=== PATIENT | male | born 1950 | race Caucasian/White ===

== ENCOUNTER 2017-04-28 16:21 | Emergency (ER) | payer MEDICARE, BC ==
[2017-04-28] MEDS ORDERED: KETOROLAC TROMETHAMINE 60 MG/2 ML VIAL IM ONE ×2 (16:52→16:57)
[2017-04-28] MEDS ORDERED: ORPHENADRINE CITRATE 30 MG/ML VIAL IM ONE (16:52)
[2017-04-28] MEDS ORDERED: ORPHENADRINE CITRATE 30 MG/ML VIAL ONE (16:57)
--- NOTE | 2017-04-28 16:58 | ERNOTE ---
Back Pain ER HPI Date of Service: 04/28/17 Presenting Symptoms: hx chronic back pain Time Seen by Provider: 04/28/17 16:43 Source: patient Exam Limitations: no limitations Immunizations: Pt. comes in with c/o R lower back pain for three days Allergies/Adverse Reactions: Allergies No Known Allergies Allergy (Verified 04/28/17 16:36) Home Medications: HOME MEDICATIONS Atorvastatin Calcium [Lipitor] 40 mg PO DAILY 03/18/14 [Last Taken 07/20/14 14: 00 1 tab] Benazepril HCl [Lotensin] 20 mg PO DAILY 03/18/14 [Last Taken 07/20/14 1 tab] Furosemide [Lasix] 80 mg PO BID 03/18/14 [Last Taken 07/20/14 1 tab] Insulin NPH Human Recom [Novolin N] 25 unit SQ HS 03/18/14 [Last Taken 07/19/14] Multivitamin [Multi-Vitamin Daily] 1 each PO DAILY 03/18/14 [Last Taken 14:00 1 tab] Nitroglycerin [Nitrostat] 0.4 mg SL PRN PRN 03/18/14 [Last Taken 07/20/14 19:15 1 tab] Warfarin Sodium [Coumadin] 5 mg PO DAILY 03/18/14 [Last Taken 07/18/14 1 tab] metFORMIN HCL [Glucophage] 750 mg PO BID 03/18/14 [Last Taken 07/20/14 14:00 1 tab] Cholecalciferol [Vitamin D] 2,000 unit PO DAILY 07/21/14 [Last Taken Unknown] Amiodarone HCl [Cordarone] 200 mg PO DAILY 02/06/15 [Last Taken Unknown] Levothyroxine Sodium [Synthroid] 225 mcg PO DAILY 02/06/15 [Last Taken Unknown] Potassium Chloride [Klor-Con M20] 20 meq PO BID 02/06/15 [Last Taken Unknown] Cyclobenzaprine HCl [Flexeril] 10 mg PO TID PRN #90 tab 04/28/17 [Last Taken Unknown] Fenofibrate 160 mg PO DAILY 04/28/17 [Last Taken Unknown] Metolazone 2.5 mg PO 04/28/17 [Last Taken Unknown] Tramadol HCl [Rybix Odt] 50 - 100 mg PO PRN PRN 04/28/17 [Last Taken Unknown] glipiZIDE [Glucotrol Xl] 5 mg PO DAILY 04/28/17 [Last Taken Unknown] Narrative: Pt. comes in with c/o R lower back pain that started this morning and has worsened throughout the day to where he was not able to stand without help. Pt. states that pain radiates down R leg. Pt. denies any SOB, CP, NVD, fever, alleviating factors despite taking tramadol for the pain. Review of Systems - Review of Systems Constitutional: Present: no symptoms reported. Absent: recent illness, fever, chills, weakness, fatigue, malaise EYE: Present: no symptoms reported ENT: Present: no symptoms reported Respiratory: Present: no symptoms reported. Absent: shortness of breath, cough , wheezing Cardiology: Present: no symptoms reported. Absent: chest pain, palpitations, edema Gastrointestinal/Abdominal: Present: no symptoms reported. Absent: nausea, vomiting, diarrhea Genitourinary: Present: no symptoms reported. Absent: frequency, decreased urinary output Musculoskeletal: Present: back pain - R lower back pain Skin: Present: no symptoms reported. Absent: rash, change in color Neurological: Present: no symptoms reported. Absent: headache, dizziness/light- headedness, numbness, tingling All Other Systems: All systems neg except as marked - Patient's Past Medical History Patient History - Medical: Arthritis, Chronic Pain, Diabetes Type 2, Hypothyroidism, Obesity Patient History - Cardiac/Respiratory: Angina, Atrial Fibrillation, Coronary Heart Disease, COPD, Hypertension, Hyperlipidemia Patient History - Cancer: No Hx of Cancer Patient History - Surgical Procedures: Cholecystectomy, T & A, Other Patient History - Other: None - Social History Living Situations: alone Abuse History: No History of abuse Psych History: Hx of Depression Smoking Status: Current every day smoker Have you smoked in the past 12 months: Yes Alcohol Use: rarely Drug Use: none Physical Exam - Physical Exam General Appearance: Present: wd/wn, alert, no apparent distress Head Exam: Present: normal inspection, no evidence of injury Eye Exam: Normal inspection: bilateral, PERRL: bilateral, EOMI: bilateral Ears, Nose, Throat: Present: normal ENT inspection, normal pharynx Neck: Present: normal inspection, nontender. Absent: lymphadenopathy (R), lymphadenopathy (L) Respiratory: Present: no respiratory distress, normal breath sounds, no accessory muscle use, chest nontender, lungs clear Cardiovascular/Chest: Present: regular rate, rhythm, no murmur, normal peripheral pulses Gastrointestinal/Abdominal: Present: normal bowel sounds, nontender, nondistended, soft Back Exam: Present: vertebral tenderness - L2-3, muscle spasm - R paraspinous and R gluteus Extremity Exam: Present: normal inspection, non-tender, normal range of motion, no edema Neurological Exam: Present: alert, oriented, normal mood/affect, no motor/ sensory deficits Skin Exam: Present: normal color, warm/dry. Absent: pallor, skin rash ED Progress - Date and Time Seen: Date and Time: 04/28/17 18:11 As pt. does not have any new injury and has history of the same symptoms feel that xray is not needed at this time. - Vital Signs Patient's Vital Signs:: I have reviewed the patient's vital signs. Vital Signs: Vital Signs 04/28/17 16:30 Temperature 36.8 C Pulse Rate 60 Respiratory 14 Rate Blood Pressure 119/75 O2 Sat by Pulse 94 Oximetry - Progress/Reassessment Chief Complaint: Back Pain Progress:: Pain free at discharge Departure Clinical Impression: Sciatica Qualifiers: Laterality: right Qualified Code(s): M54.31 - Sciatica, right side - Departure Disposition: Home self-care Condition: Good Instructions: Sciatica, [id number] Additional Instructions: Please follow up with your primary provider in 2-3 days Referrals: Anson Berry MD [Primary Care Provider] - Prescriptions: Cyclobenzaprine HCl [Flexeril] 10 mg PO TID PRN #90 tab PRN Reason: MUSCLE SPASMS
[2017-04-28 18:23] VITALS: BP 121/76
== END 2017-04-28 18:10 | disposition home or self-care (01) ==
LOC: ER 16:21
DX: M54.31 Sciatica, right side (principal); F17.200 Nicotine dependence, unspecified, uncomplicated; I48.91 Unspecified atrial fibrillation; Z79.01 Long term (current) use of anticoagulants; E11.9 Type 2 diabetes mellitus without complications; Z79.4 Long term (current) use of insulin; E03.9 Hypothyroidism, unspecified; I10 Essential (primary) hypertension; E78.5 Hyperlipidemia, unspecified; G89.29 Other chronic pain; M19.90 Unspecified osteoarthritis, unspecified site

== ENCOUNTER 2018-08-05 13:33 | Inpatient (IN) | payer BC, MEDICARE ==
--- NOTE | 2018-08-05 13:54 | ERNOTE ---
Integumentary HPI - Narrative Date of Service: 08/05/18 - General Time Seen by Provider: 08/05/18 13:51 Source: patient Exam Limitations: no limitations - Immun/Allergies/Home Medications Immunizations: IMMUNIZATION HX Immunizations Up to Date Yes History of Influenza Vaccine Yes Hx Pneumococcal Vaccination Yes Allergies/Adverse Reactions: Allergies Allergy/AdvReac Type Severity Reaction Status Date / Time No Known Allergies Allergy Verified 08/05/18 13:45 Home Medications: HOME MEDICATIONS Multivitamin [Multi-Vitamin Daily] 1 ea PO DAILY@14303/18/14 [Last Taken 07/20/14 14:00 1 tab] Cholecalciferol [Vitamin D] 2,000 unit PO DAILY@142907/21/14 [Last Taken Unknown] flaxseed oil 1,000 mg capsule 1,000 mg PO DAILY@142902/20/18 [Last Taken Unknown] metolazone 2.5 mg tablet 2.5 mg PO .COMPLEX #30 tab 04/02/18 [Last Taken Unknown] insulin NPH isophane U- 100 human 100 unit/mL subcutaneous suspension See Rx Instructions SUB-Q BID #0.1 ml 04/09/18 [Last Taken Unknown] atorvastatin 40 mg tablet 40 mg PO DAILY@02304/13/18 [Last Taken Unknown] cyclobenzaprine 10 mg tablet 10 mg PO TID #60 tab 05/27/18 [Last Taken Unknown] nitroglycerin 0.4 mg sublingual tablet 0.4 mg SL PRN PRN #25 tab 06/10/18 [Last Taken Unknown] warfarin 5 mg tablet 5 mg PO .COMPLEX #30 tab 07/28/18 [Last Taken Unknown] Albuterol Sulfate [Proair Hfa] 2 puff IH Q4H PRN #1 inhaler 08/03/18 [Last Taken Unknown] Amiodarone HCl [Cordarone] 200 mg PO DAILY@14308/05/18 [Last Taken Unknown] Benazepril HCl [Lotensin] 20 mg PO DAILY@142908/05/18 [Last Taken Unknown] Blood Sugar Diagnostic [Precision Xtra Test] 0 ea .ROUTE .MEDSUPPLY 08/05/18 [Last Taken Unknown] Fenofibrate 160 mg PO DAILY@14308/05/18 [Last Taken 08/05/18] Furosemide [Lasix] 80 mg PO 142908/05/18 [Last Taken 08/05/18] Levothyroxine Sodium [Synthroid] 25 mcg PO DAILY@142908/05/18 [Last Taken Unknown] Levothyroxine Sodium [Synthroid] 200 mcg PO DAILY@142908/05/18 [Last Taken Unknown] Potassium Chloride [Klor-Con M20] 20 meq PO 229,142908/05/18 [Last Taken Unknown] Sulfamethoxazole/Trimethoprim [Bactrim Ds] 160 mg PO DAILY@142908/05/18 [Last Taken Unknown] glipiZIDE [Glipizide] 5 mg PO DAILY@142908/05/18 [Last Taken Unknown] metFORMIN HCL [Metformin HCl] 1,000 mg PO 08/05/18 [Last Taken Unknown] - Pain Pain Score: 9 - History of Present Illness Narrative: The patient is a 68 year old male who presents for worsening bilateral lower extremity cellulitis which has been present for 2 days. There are associated symptoms of fatigue, chills and rash. The patient reports pain to bilateral lower extremities, 9/10. There are no alleviating factors. There are aggravating factors of activity. Previous treatments have included: currently taking Bactrim DS without improvement. The past medical history includes: arthritis, AFib, COPD, CAD, DVT, DM, peripheral neuropathy, HLD, HTN, hypothyroid and Vit D deficiency. The social history is positive for current tobacco use. The patient has had no ill contacts. Review of Systems - Review of Systems Constitutional: Present: chills, fatigue, malaise. Absent: fever EYE: Present: no symptoms reported ENT: Present: no symptoms reported. Absent: ear pain, nasal drainage, sore throat Respiratory: Present: shortness of breath, cough Cardiology: Present: edema. Absent: chest pain Gastrointestinal/Abdominal: Present: nausea. Absent: vomiting, diarrhea, abdominal pain Genitourinary: Present: no symptoms reported. Absent: dysuria Musculoskeletal: Present: no symptoms reported Skin: Present: rash, change in color Neurological: Present: weakness Endocrine: Present: no symptoms reported Hematologic/Lymphatic: Present: no symptoms reported Psych: Present: no symptoms reported All Other Systems: All systems neg except as marked Medical History (Last Reviewed 08/05/18 @ 21:52 by FELIPA Thompson) Diabetic foot infection (Acute) Porphyria (Chronic) CAD (coronary artery disease) (Chronic) Eczema (Chronic) Testicular/scrotal pain (Acute) Scrotum swelling (Chronic) Testicular/scrotal pain (Chronic) This is a chronically reoccurring event Scrotum swelling (Acute) Diabetes mellitus (Chronic) BS running in the 140-150s usually but has had lows down to as low as 28 at night while sleeping. Back pain Dysphagia Edema Insomnia Low back pain Onset Date: ~10/04/15 Onychomycosis Onset Date: ~10/04/15 Arthritis Onset Date: Unknown Atrial fibrillation w/ RVR Bilateral knee pain Onset Date: ~10/04/15 COPD (chronic obstructive pulmonary disease) Onset Date: ~10/04/15 Coronary artery disease Onset Date: ~10/04/15 DVT (deep venous thrombosis) Onset Date: Unknown Diabetes mellitus Onset Date: ~10/04/15 Diabetic peripheral neuropathy Onset Date: ~10/04/15 Hearing loss Hyperlipidemia due to dietary fat intake Hypertension Onset Date: ~10/04/15 Hypothyroidism Paroxysmal atrial fibrillation Unstable angina with LAD stent 2000; with 3.0 promus drug eluting stent to the LAD 09/18/2010 Venous (peripheral) insufficiency Onset Date: ~10/04/15 Vitamin D deficiency Onset Date: ~02/04/13 Surgical History: Surgical History (Last Reviewed 08/05/18 @ 21:52 by FELIPA Thompson) History of carpal tunnel release Onset Date: ~1998 Bilateral History of esophagogastroduodenoscopy (EGD) Onset Date: ~03/23/14 ; clotest Negative. Pharyngeal mass Hx of adenoidectomy Onset Date: Unknown Hx of angioplasty (3) OP 1 & 2 Hx of arthroscopic knee surgery Onset Date: ~02/08/15 Right; Hx of cardiac catheterization Onset Date: ~09/18/12 Hx of cholecystectomy Onset Date: ~1996 [facility] Hx of colonoscopy Onset Date: Unknown Hx of toe surgery Onset Date: ~1986 Toe Nail removal & scraping Hx of tonsillectomy Onset Date: ~1975 Hx of vascular surgery Onset Date: ~2013 Vascular Occlusion, Right Stented coronary artery 06/2001, 09/2010- 2 stents Family History: Family History (Last Reviewed 08/05/18 @ 21:52 by FELIPA Thompson) Brother , @ age 48 Myocardial infarction Father , @ age 59 Heart disease COPD (chronic obstructive pulmonary disease) Mother CVA (cerebral vascular accident) Myocardial infarction x3 @ age 62 Heart disease Colon cancer Social History: Preferred Language Swedish Do you have any buddhism or No cultural preference? Smoking Status Current every day smoker Abuse History No History of abuse Psych History Hx of Depression (Last Updated 07/24/18 @ 16:44 by Juventino Griggs DO) No Social History Section defined Physical Exam - Physical Exam General Appearance: Present: wd/wn, alert, moderate distress Head Exam: Present: normal inspection Respiratory: Present: no respiratory distress, no accessory muscle use, wheezing - inspiratory and expiratory wheezing to right, expiratory wheezing to left bases Cardiovascular/Chest: Present: no murmur, irregularly irregular Extremity Exam: Present: decreased range of motion, pedal edema - 3-4+ bilateral lower extremity pitting edema, fine papular lesions covering upper portion of erythema, extremity edema, other - circumferential erythema with papular lesions to bilateral lower extremities from upper to mid calf to ankles and dorsal feet Neurological Exam: Present: alert, oriented, normal mood/affect Skin Exam: Present: warm/dry, skin rash - fine papular lesions to lower abdomen left anterior and lateral chest and left upper arm presumed secondary drug reaction Progress - Date and Time Seen: Date and Time: 08/05/18 Discussed case with and will admit patient for cellulitis with failed outpatient treatment. Discussed with patient also having wheezing and symptoms related to COPD. Patient Crea elevated from levels obtained 2 days ago. Patient will be started on Clindamycin IV. - Results and Orders Patient's Lab Results:: I have reviewed the patient's lab results. - Vital Signs Patient's Vital Signs:: I have reviewed the patient's vital signs. Vital Signs: Vital Signs 08/05/18 13:41 Temperature 36.7 C Pulse Rate 61 Respiratory Rate 20 Blood Pressure 143/79 O2 Sat by Pulse Oximetry 91 L - Progress/Reassessment Chief Complaint: Cellulitis Departure Clinical Impression: Failure of outpatient treatment, COPD (chronic obstructive pulmonary disease) with acute bronchitis, Acute renal insufficiency Cellulitis Qualifiers: Site of cellulitis: extremity Site of cellulitis of extremity: lower extremity Laterality: unspecified laterality Qualified Code(s): L03.119 - Cellulitis of unspecified part of limb - Departure Disposition: Still a patient Condition: Fair
[2018-08-05] MEDS ORDERED: ALBUTEROL SULFATE/IPRATROPIUM 3 ML NEBU IH ONE (14:02)
[2018-08-05] MEDS ORDERED: MORPHINE SULFATE 2 MG/ML DISP.SYRIN IV ONE (14:19)
[2018-08-05] MEDS ORDERED: MORPHINE SULFATE 2 MG/ML DISP.SYRIN ONE (14:19)
[2018-08-05 14:27] LABS: Hematocrit 47.9 % (42.0-52.0); Hemoglobin 15.7 gm/dL (13.5-18.0); Mean Cell Volume 92.6 fl (78-100); Mean Corpuscular Hemoglobin 30.4 pg (27-31); Mean Corpuscular Hgb Conc 32.8 g/dl (32-36); Neutrophil # 9.4 K/mm3 (1.3-6.0); Neutrophil % 83.5 % (42-75.0); Platelet Count 255 K/mm3 (150-450); Red Blood Count 5.17 M/mm3 (4.7-6.0); Red Cell Distribution Width 16.7 % (11.5-14.0); White Blood Count 11.3 K/mm3 (4.0-10.5)
[2018-08-05 14:47] LABS: Albumin * 2.9 gm/dl (3.4-5.0); Anion Gap 13.1 mmol/L (6.8-13.8); BUN/Creatinine Ratio 15.6 (9.0-21.6); Bilirubin, Total 0.8 mg/dL (0.0-1.1); CRP 11.7 mg/dL (0.0-0.9); Ca. Corrected For Albumin 9.7 mg/dL (8.4-10.2); Calcium * 9.1 mg/dL (7.9-10.9); Potassium 4.1 mmol/L (3.4-4.6)
[2018-08-05] MEDS ORDERED: MORPHINE SULFATE 4 MG/ML SYRG IV ONE (14:52)
[2018-08-05] MEDS ORDERED: CLINDAMYCIN PHOSPHATE 600 MG in DEXTROSE 5 % IN WATER 100 ML IV ONE ×2 (15:33)
[2018-08-05] MEDS ORDERED: NITROGLYCERIN 0.4 MG/TAB BTL SL PRN (18:21)
[2018-08-05] MEDS ORDERED: ALBUTEROL SULFATE 200 PUFF INHALER IH PRN (18:21)
[2018-08-05] MEDS ORDERED: ACETAMINOPHEN 500 MG TABLET PO PRN (18:37)
[2018-08-05] MEDS ORDERED: ONDANSETRON HCL 8 MG TABLET PO PRN (18:39)
--- NOTE | 2018-08-05 19:19 | HP ---
Chief Complaint - Chief Complaint Date of Service: 08/05/18 Time of Service: 17:40 Chief Complaint: Pain and redness in both LEs. History of Present Illness: Bar Rodriguez is a 68-year-old male well known to me who presents with severe cellulitis in both legs. He had had some cellulitis 2 days ago and presented to the ER and he was started on oral Bactrim. He has since started erupting a morbilliform rash over the abdomen and arms. Further the legs have become much more red and hot to touch and much more painful than it was 2 days ago. It is very painful with a stinging type feeling when he stands up. He is able to walk but it hurts a lot to do so. I'll start him on IV clindamycin 300 mg 4 times a day. He did get 600 mg loading dose in the emergency room. He'll keep his legs elevated. Blood cultures were drawn in the emergency room but will not be available for couple days. I'll start him on a consistent carb diet and his usual twice a day short- acting mealtime insulin as he usually at least 2 meals a day. Medical History (Last Reviewed 08/05/18 @ 16:28 by Cecilia Lofton RN) Diabetic foot infection (Acute) Porphyria (Chronic) CAD (coronary artery disease) (Chronic) Eczema (Chronic) Testicular/scrotal pain (Acute) Scrotum swelling (Chronic) Testicular/scrotal pain (Chronic) This is a chronically reoccurring event Scrotum swelling (Acute) Diabetes mellitus (Chronic) BS running in the 140-150s usually but has had lows down to as low as 28 at night while sleeping. Back pain Dysphagia Edema Insomnia Low back pain Onset Date: ~10/04/15 Onychomycosis Onset Date: ~10/04/15 Arthritis Onset Date: Unknown Atrial fibrillation w/ RVR Bilateral knee pain Onset Date: ~10/04/15 COPD (chronic obstructive pulmonary disease) Onset Date: ~10/04/15 Coronary artery disease Onset Date: ~10/04/15 DVT (deep venous thrombosis) Onset Date: Unknown Diabetes mellitus Onset Date: ~10/04/15 Diabetic peripheral neuropathy Onset Date: ~10/04/15 Hearing loss Hyperlipidemia due to dietary fat intake Hypertension Onset Date: ~10/04/15 Hypothyroidism Paroxysmal atrial fibrillation Unstable angina with LAD stent 2000; with 3.0 promus drug eluting stent to the LAD 09/18/2010 Venous (peripheral) insufficiency Onset Date: ~10/04/15 Vitamin D deficiency Onset Date: ~02/04/13 Surgical History: Surgical History (Last Reviewed 08/05/18 @ 16:28 by Cecilia Lofton RN) History of carpal tunnel release Onset Date: ~1998 Bilateral History of esophagogastroduodenoscopy (EGD) Onset Date: ~03/23/14 ; clotest Negative. Pharyngeal mass Hx of adenoidectomy Onset Date: Unknown Hx of angioplasty (3) OP 1 & 2 Hx of arthroscopic knee surgery Onset Date: ~02/08/15 Right; Hx of cardiac catheterization Onset Date: ~09/18/12 Hx of cholecystectomy Onset Date: ~1996 [facility] Hx of colonoscopy Onset Date: Unknown Hx of toe surgery Onset Date: ~1986 Toe Nail removal & scraping Hx of tonsillectomy Onset Date: ~1975 Hx of vascular surgery Onset Date: ~2013 Vascular Occlusion, Right Stented coronary artery 06/2001, 09/2010- 2 stents Family History: Family History (Last Reviewed 08/05/18 @ 16:28 by Cecilia Lofton RN) Brother , @ age 48 Myocardial infarction Father , @ age 59 Heart disease COPD (chronic obstructive pulmonary disease) Mother CVA (cerebral vascular accident) Myocardial infarction x3 @ age 62 Heart disease Colon cancer Social History: Patient Lives/Resources Home Utilized Preferred Language Nepali Do you have any cheondoism or No cultural preference? Smoking Status Current every day smoker Have you smoked in the past 12 Yes months Do you dip or chew tobacco No Abuse History No History of abuse Psych History Hx of Depression (Last Updated 07/24/18 @ 16:44 by Juventino Griggs DO) No Social History Section defined Review Of Systems (GEN) - Review of Systems Generalized/Overall Review: Present: Malaise EENTM: Present: No Symptoms Reported Respiratory: Present: No Symptoms Reported Cardiac: Present: No Symptoms Reported, Palpitations Abdominal: Present: No Symptoms Reported Genitourinary: Present: No Symptoms Reported Musculoskeletal: Present: No Symptoms Reported Neurological: Present: No Symptoms Reported Skin: Present: Rash - The trunk and arms., Change in Color - Of both lower extremities below the knees. Legs are dark red with dark purple areas within them. There are no open sores and there is no drainage to culture. Endocrine: Present: No Symptoms Reported Misc: All systems neg except as marked Immunizations: IMMUNIZATION HX Immunizations Up to Date Yes History of Influenza Vaccine Yes Hx Pneumococcal Vaccination Yes Allergies/Adverse Reactions: Allergies Allergy/AdvReac Type Severity Reaction Status Date / Time No Known Allergies Allergy Verified 08/05/18 13:45 Home Medications: HOME MEDICATIONS Multivitamin [Multi-Vitamin Daily] 1 ea PO DAILY@14303/18/14 [Last Taken 07/20/14 14:00 1 tab] Cholecalciferol [Vitamin D] 2,000 unit PO DAILY@14307/21/14 [Last Taken Unknown] flaxseed oil 1,000 mg capsule 1,000 mg PO DAILY@142902/20/18 [Last Taken Unknown] metolazone 2.5 mg tablet 2.5 mg PO .COMPLEX #30 tab 04/02/18 [Last Taken Unknown] insulin NPH isophane U- 100 human 100 unit/mL subcutaneous suspension See Rx In structions SUB-Q BID #0.1 ml 04/09/18 [Last Taken Unknown] atorvastatin 40 mg tablet 40 mg PO DAILY@02304/13/18 [Last Taken Unknown] cyclobenzaprine 10 mg tablet 10 mg PO TID #60 tab 05/27/18 [Last Taken Unknown] nitroglycerin 0.4 mg sublingual tablet 0.4 mg SL PRN PRN #25 tab 06/10/18 [Last Taken Unknown] warfarin 5 mg tablet 5 mg PO .COMPLEX #30 tab 07/28/18 [Last Taken Unknown] Albuterol Sulfate [Proair Hfa] 2 puff IH Q4H PRN #1 inhaler 08/03/18 [Last Taken Unknown] Amiodarone HCl [Cordarone] 200 mg PO DAILY@14308/05/18 [Last Taken Unknown] Benazepril HCl [Lotensin] 20 mg PO DAILY@142908/05/18 [Last Taken Unknown] Blood Sugar Diagnostic [Precision Xtra Test] 0 ea .ROUTE .MEDSUPPLY 08/05/18 [Last Taken Unknown] Fenofibrate 160 mg PO DAILY@142908/05/18 [Last Taken 08/05/18] Furosemide [Lasix] 80 mg PO 08/05/18 [Last Taken 08/05/18] Levothyroxine Sodium [Synthroid] 25 mcg PO DAILY@1430 08/05/18 [Last Taken Unknown] Levothyroxine Sodium [Synthroid] 200 mcg PO DAILY@1430 08/05/18 [Last Taken Unknown] Potassium Chloride [Klor-Con M20] 20 meq PO 0230,1430 08/05/18 [Last Taken Unknown] Sulfamethoxazole/Trimethoprim [Bactrim Ds] 160 mg PO DAILY@1430 08/05/18 [Last Taken Unknown] glipiZIDE [Glipizide] 5 mg PO DAILY@1430 08/05/18 [Last Taken Unknown] metFORMIN HCL [Metformin HCl] 1,000 mg PO 0230,1430 08/05/18 [Last Taken Unknown] Exam - Exam Vital Signs: Vital Signs - Last Taken Temp 36.4 C 08/05/18 16:54 Pulse 60 08/05/18 16:54 Resp 18 08/05/18 16:54 BP 108/56 08/05/18 16:54 Pulse Ox 92 L 08/05/18 16:54 Constitutional: Present: Alert, Oriented x3, Cooperative, Well developed, Well nourished, Moderate distress ENT Exam: Present: normal ENT inspection, hearing grossly normal, pharynx normal, TMs normal Eye Exam: bilateral eye: normal inspection, PERRL, EOMI Neck: Present: non-tender, full range of motion, supple Back Exam: Present: normal inspection, no CVA tenderness, no vertebral tenderness Breasts: Present: Exam deferred, Nontender Respiratory: Present: chest non-tender, lungs clear, normal breath sounds, no respiratory distress, no accessory muscle use Cardiovascular/Chest: Present: extra beats, irregularly irregular Peripheral Pulses: carotid (R): 2+, carotid (L): 2+, radial (R): 2+, radial (L): 2+ Abdomen: Present: Normal bowel sounds, soft, nontender, nondistended, no rebound tenderness, no hepatospenomegaly, no masses, obese /Rectal: Present: Exam deferred Extremity: Present: inflammation, lower extremity edema Skin Exam: Present: skin rash - Pinkish morbilliform rash over the trunk and arms and is macular. Lymphatic: Present: no adenopathy Neurologic: Present: configuration consultant II-XII nml as tested Appearance: Present: appropriate appearance, appropriate insight, neat, no memory impairment Eye contact: Present: cooperative, good eye contact, normal speech, avoids eye contact Thoughts: Present: normal thought pattern, no apparent hallucination, auditory hallucinations Diagnostic Studies: Abnormal Lab Results 08/05/18 08/05/18 08/05/18 Range/Units 14:15 14:15 14:15 WBC 11.3 H (4.0-10.5) K/mm3 RDW 16.7 H (11.5-14.0) % Immature Gran % (Auto) 0.80 H (0.001-0.429) % Immature Gran # (Auto) 0.09 H (0.000-0.0310) K/mm3 Neutrophils % 83.5 H (42-75.0) % Lymphocytes % 6.7 L (20-51) % Neutrophils # 9.4 H (1.3-6.0) K/mm3 Lymphocytes # 0.76 L (1.5-3.5) k/mm3 Chloride 96 L (97-106) mmol/L BUN 36 H (6-23) mg/dL Creatinine 2.31 H D (0.4-1.4) mg/dL Est GFR (Non-Af Amer) 30 L D (60-130) mL/min Random Glucose 149 H (70-110) mg/dL C-Reactive Prot, Quant 11.7 H (0.0-0.9) mg/dL B-Natriuretic Peptide 1822 H (5-350) pg/mL Albumin 2.9 L (3.4-5.0) gm/dl Laboratory Results WBC 11.3 K/mm3 (4.0-10.5) H 08/05/18 14:15 RBC 5.17 M/mm3 (4.7-6.0) 08/05/18 14:15 Hgb 15.7 gm/dL (13.5-18.0) 08/05/18 14:15 Hct 47.9 % (42.0-52.0) 08/05/18 14:15 MCV 92.6 fl (78-100) 08/05/18 14:15 MCH 30.4 pg (27-31) 08/05/18 14:15 MCHC 32.8 g/dl (32-36) 08/05/18 14:15 RDW 16.7 % (11.5-14.0) H 08/05/18 14:15 Plt Count 255 K/mm3 (150-450) 08/05/18 14:15 MPV 10.0 fl (8-11.3) 08/05/18 14:15 Immature Gran % (Auto) 0.80 % (0.001-0.429) H 08/05/18 14:15 Immature Gran # (Auto) 0.09 K/mm3 (0.000-0.0310) H 08/05/18 14:15 Neutrophils % 83.5 % (42-75.0) H 08/05/18 14:15 Lymphocytes % 6.7 % (20-51) L 08/05/18 14:15 Monocytes % 6.6 % (0.0-9) 08/05/18 14:15 Eosinophils % 2.0 % (0.0-3.0) 08/05/18 14:15 Basophils % 0.4 % (0.0-1.0) 08/05/18 14:15 Nucleated RBC % 0.0 k/mm3 (0-1) 08/05/18 14:15 Neutrophils # 9.4 K/mm3 (1.3-6.0) H 08/05/18 14:15 Lymphocytes # 0.76 k/mm3 (1.5-3.5) L 08/05/18 14:15 Monocytes # 0.7 k/mm3 (0.0-1.0) 08/05/18 14:15 Eosinophils # 0.2 k/mm3 (0.0-0.7) 08/05/18 14:15 Absolute Basophils 0.1 k/mm3 (0.0-0.1) 08/05/18 14:15 Sodium 136 mmol/L (132-142) 08/05/18 14:15 Plasma Sodium 137 mmol/L (130-142) 08/05/18 14:15 Potassium 4.1 mmol/L (3.4-4.6) 08/05/18 14:15 Chloride 96 mmol/L (97-106) L 08/05/18 14:15 Carbon Dioxide 31.0 mmol/L (24-32.6) 08/05/18 14:15 Anion Gap 13.1 mmol/L (6.8-13.8) 08/05/18 14:15 BUN 36 mg/dL (6-23) H 08/05/18 14:15 Creatinine 2.31 mg/dL (0.4-1.4) H D 08/05/18 14:15 Est GFR (Non-Af Amer) 30 mL/min (60-130) L D 08/05/18 14:15 BUN/Creatinine Ratio 15.6 (9.0-21.6) 08/05/18 14:15 Random Glucose 149 mg/dL (70-110) H 08/05/18 14:15 Lactic Acid, Venous 1.3 mmol/L (0.4-2.0) 08/05/18 14:15 Calcium 9.1 mg/dL (7.9-10.9) 08/05/18 14:15 Calcium Adj for Albumin 9.7 mg/dL (8.4-10.2) 08/05/18 14:15 Total Bilirubin 0.8 mg/dL (0.0-1.1) 08/05/18 14:15 AST 30 U/L (0-48) 08/05/18 14:15 ALT 23 U/L (19-67) 08/05/18 14:15 Alkaline Phosphatase 80 U/L (50-170) 08/05/18 14:15 C-Reactive Prot, Quant 11.7 mg/dL (0.0-0.9) H 08/05/18 14:15 B-Natriuretic Peptide 1822 pg/mL (5-350) H 08/05/18 14:15 Total Protein 8.0 gm/dL (6.2-8.2) 08/05/18 14:15 Albumin 2.9 gm/dl (3.4-5.0) L 08/05/18 14:15 Assessment/Plan - Narrative Narrative: 1. Start Cleocin 300 mg every 6 hours IV piggyback 2. Monitor and manage blood sugars 3. Progressive ambulation. 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
[2018-08-05] MEDS: CLINDAMYCIN PHOSPHATE 300 MG in DEXTROSE 5 % IN WATER 50 ML IV SCH ×2 (21:33)
[2018-08-06] MEDS ORDERED: ROSUVASTATIN CALCIUM 10 MG TABLET ONE (02:29)
[2018-08-06] MEDS ORDERED: FUROSEMIDE 80 MG TABLET PO SCH ×2 (02:30→09:00)
[2018-08-06] MEDS: WARFARIN SODIUM 5 MG TABLET PO SCH (02:31)
[2018-08-06] MEDS: ROSUVASTATIN CALCIUM 20 MG TABLET PO SCH (02:31)
[2018-08-06] MEDS: POTASSIUM CHLORIDE 20 MEQ TABLET.SA PO SCH ×2 (02:31→13:54)
[2018-08-06] MEDS: CLINDAMYCIN PHOSPHATE 300 MG in DEXTROSE 5 % IN WATER 50 ML IV SCH ×8 (03:03→21:09)
[2018-08-06 05:23] LABS: Hematocrit 43.7 % (42.0-52.0); Hemoglobin 13.9 gm/dL (13.5-18.0); Mean Cell Volume 93.8 fl (78-100); Mean Corpuscular Hemoglobin 29.8 pg (27-31); Mean Corpuscular Hgb Conc 31.8 g/dl (32-36); Neutrophil # 8.1 K/mm3 (1.3-6.0); Neutrophil % 81.5 % (42-75.0); Platelet Count 242 K/mm3 (150-450); Red Blood Count 4.66 M/mm3 (4.7-6.0); Red Cell Distribution Width 16.9 % (11.5-14.0); White Blood Count 9.9 K/mm3 (4.0-10.5)
[2018-08-06 05:27] LABS: Anion Gap 8.5 mmol/L (6.8-13.8); BUN/Creatinine Ratio 13.6 (9.0-21.6); Calcium * 8.2 mg/dL (7.9-10.9); Estimated Creat Clear 22.9; Potassium 4.5 mmol/L (3.4-4.6)
[2018-08-06] MEDS: INSULIN NPH HUMAN ISOPHANE 100 UNITS/ML VIAL SC SCH ×2 (07:11→17:13)
[2018-08-06 08:30] LABS: Prothrombin Time (Patient) 26.5 Seconds (9.0-11.0)
[2018-08-06 08:42] LABS: INR 2.62 INR (0.90-1.10)
[2018-08-06] MEDS: CYCLOBENZAPRINE HCL 10 MG TABLET PO SCH ×3 (09:21→17:13)
[2018-08-06] MEDS: NORMAL SALINE 1,000 ML IV PRN ×3 (10:19→17:16)
[2018-08-06] MEDS: ALBUTEROL SULFATE 2.5 MG/0.5 ML VIAL.NEB IH SCH ×3 (11:01→18:12)
--- NOTE | 2018-08-06 11:01 | PN ---
Subjective - Date and Time Seen Date: 08/06/18 Time: 09:15 Subjective Narrative: Mr. Rodriguez is worse this morning. He is weaker, hypersomnolent, weak voice, and light headed. His legs are hurting even without weightbearing. He is mildly to Rate of 24 and his lungs have bilateral expiratory and expiratory wheezes with scattered rhonchi. This morning lab is significantly worse. His admission BNP is 1800 but he appears clinically dry. His baseline creatinine is 1.3. He was 2.3 on admission yesterday and it is 3.33 today. His skin turgor is diminished, mucous membranes are dry, and he has some mild coordination in the lower extremity legs where his cellulitis is so prominent. At this time he is entirely too weak to be able to go home today in my opinion. With a significant worsening of his renal status and alteration in his mental status I believe he s hould be admitted to acute care. Objective - Review of Systems Generalized/Overall Review: Reports: Weakness, Malaise, Fatigue EENTM: Reports: No Symptoms Reported Respiratory: Reports: Cough, Shortness of Breath, Wheezing Cardiac: Reports: No Symptoms Reported Abdominal: Reports: No Symptoms Reported Genitourinary Symptoms: Reports: Oliguria Musculoskeletal Complaints: Reports: Other - Bilateral LE pain Neurological: Reports: Numbness, Weakness Skin: Reports: Rash - Thought to be from the trimethoprim sulfamethoxazole the rash appears to have faded some today., Other - The cellulitis on the lower extremities is a deeper red and violaceous color. It is still hot touch. It is very tender to touch. Extremely painful for him to stand and bear weight. Endocrine: Reports: No Symptoms Reported - Vitals Vitals: Last Vital Signs Temp 36.6 C 08/06/18 10:23 Pulse 58 L 08/06/18 10:23 Resp 24 08/06/18 10:23 BP 94/34 08/06/18 10:23 Pulse Ox 92 L 08/06/18 10:23 - Abnormal Lab Findings Abnormal Lab Findings: Abnormal Lab Results 08/05/18 08/05/18 08/05/18 Range/Units 14:15 14:15 14:15 WBC 11.3 H (4.0-10.5) K/mm3 RBC (4.7-6.0) M/mm3 MCHC (32-36) g/dl RDW 16.7 H (11.5-14.0) % Immature Gran % (Auto) 0.80 H (0.001-0.429) % Immature Gran # (Auto) 0.09 H (0.000-0.0310) K/mm3 Neutrophils % 83.5 H (42-75.0) % Lymphocytes % 6.7 L (20-51) % Neutrophils # 9.4 H (1.3-6.0) K/mm3 Lymphocytes # 0.76 L (1.5-3.5) k/mm3 ESR (0-10) mm/hr PT (9.0-11.0) Seconds INR (Anticoag Therapy) (0.90-1.10) INR Chloride 96 L (97-106) mmol/L Carbon Dioxide (24-32.6) mmol/L BUN 36 H (6-23) mg/dL Creatinine 2.31 H D (0.4-1.4) mg/dL Est GFR (Non-Af Amer) 30 L D (60-130) mL/min Random Glucose 149 H (70-110) mg/dL C-Reactive Prot, Quant 11.7 H (0.0-0.9) mg/dL B-Natriuretic Peptide 1822 H (5-350) pg/mL Albumin 2.9 L (3.4-5.0) gm/dl 18 18 18 Range/Units 05:00 05:10 05:10 WBC (4.0-10.5) K/mm3 RBC 4.66 L (4.7-6.0) M/mm3 MCHC 31.8 L (32-36) g/dl RDW 16.9 H (11.5-14.0) % Immature Gran % (Auto) (0.001-0.429) % Immature Gran # (Auto) 0.04 H (0.000-0.0310) K/mm3 Neutrophils % 81.5 H (42-75.0) % Lymphocytes % 6.7 L (20-51) % Neutrophils # 8.1 H (1.3-6.0) K/mm3 Lymphocytes # 0.66 L (1.5-3.5) k/mm3 ESR 63 H (0-10) mm/hr PT 26.5 H (9.0-11.0) Seconds INR (Anticoag Therapy) 2.62 H (0.90-1.10) INR Chloride (97-106) mmol/L Carbon Dioxide (24-32.6) mmol/L BUN (6-23) mg/dL Creatinine (0.4-1.4) mg/dL Est GFR (Non-Af Amer) (60-130) mL/min Random Glucose (70-110) mg/dL C-Reactive Prot, Quant (0.0-0.9) mg/dL B-Natriuretic Peptide (5-350) pg/mL Albumin (3.4-5.0) gm/dl 08/06/18 Range/Units 05:10 WBC (4.0-10.5) K/mm3 RBC (4.7-6.0) M/mm3 MCHC (32-36) g/dl RDW (11.5-14.0) % Immature Gran % (Auto) (0.001-0.429) % Immature Gran # (Auto) (0.000-0.0310) K/mm3 Neutrophils % (42-75.0) % Lymphocytes % (20-51) % Neutrophils # (1.3-6.0) K/mm3 Lymphocytes # (1.5-3.5) k/mm3 ESR (0-10) mm/hr PT (9.0-11.0) Seconds INR (Anticoag Therapy) (0.90-1.10) INR Chloride (97-106) mmol/L Carbon Dioxide 34.0 H (24-32.6) mmol/L BUN 43 H (6-23) mg/dL Creatinine 3.16 H D (0.4-1.4) mg/dL Est GFR (Non-Af Amer) 21 L D (60-130) mL/min Random Glucose (70-110) mg/dL C-Reactive Prot, Quant (0.0-0.9) mg/dL B-Natriuretic Peptide (5-350) pg/mL Albumin (3.4-5.0) gm/dl - EKG/Xray Findings Interpretation: Reviewed by me - Exam Constitutional: Present: Oriented x3, Moderate distress, Lethargic, Somnolent, Morbidly obese ENT Exam: Present: normal ENT inspection, hearing grossly normal, pharynx normal, TMs normal Neck: Present: non-tender, full range of motion, supple, normal inspection Breasts: Present: Nontender Respiratory: Present: chest non-tender, accessory muscle use, rhonchi, wheezing Cardiovascular/Chest: Present: normal peripheral pulses Abdomen: Present: Normal bowel sounds, soft, nontender, nondistended, no rebound tenderness, no hepatospenomegaly, no masses - But because of the large pannus is very difficult to assess the abdominal contents. /Rectal: Present: Exam deferred Extremity: Present: inflammation, lower extremity edema - But less than I have witnessed before there is actually some crenation over the tibias., leg pain, pedal edema Skin Exam: Present: skin rash, other - Deep red violaceous coloring below the knees. Hot to touch. Lymphatic: Present: no adenopathy Neurologic: Present: decision unit rn II-XII nml as tested Appearance: Present: no memory impairment, disheveled Eye contact: Present: cooperative, normal speech - Voice is very weak, decreased rate of speech Thoughts: Present: normal thought pattern, no apparent hallucination Assessment/Plan Plan Narrative: 1. Rehydrate with normal saline 1 L bolus followed by 1 25 mL per hour continuously until clinical dehydration is resolved 2. Check chest x-ray 2 view today 3. Recheck BMP this afternoon and then recheck CBC CMP and magnesium tomorrow. 4. Continue with clindamycin 300 mg 4 times a day IV piggyback. 5. Try to get admitted to acute care. 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
[2018-08-06] MEDS: LEVOTHYROXINE SODIUM 100 MCG TABLET PO SCH (13:53)
[2018-08-06] MEDS: AMIODARONE HCL 200 MG TABLET PO SCH (13:53)
[2018-08-06] MEDS: LEVOTHYROXINE SODIUM 25 MCG TABLET PO SCH (13:54)
[2018-08-06] MEDS: CHOLECALCIFEROL 1,000 UNIT CAPSULE PO SCH (13:55)
[2018-08-06] MEDS ORDERED: ENALAPRIL MALEATE 20 MG TABLET PO SCH (14:30)
[2018-08-06] MEDS ORDERED: FENOFIBRATE,MICRONIZED 134 MG CAPSULE PO SCH (14:30)
[2018-08-06] MEDS ORDERED: METOLAZONE 2.5 MG TABLET PO SCH (14:30)
[2018-08-06] MEDS ORDERED: glipiZIDE 5 MG TABLET PO SCH (14:30)
[2018-08-06 15:22] LABS: BUN/Creatinine Ratio 13.6 (9.0-21.6); Calcium * 7.9 mg/dL (7.9-10.9); Carbon Dioxide 30.7 mmol/L (24-32.6); Estimated Creat Clear 21.4; Potassium 4.7 mmol/L (3.4-4.6)
[2018-08-06] MEDS ORDERED: NORMAL SALINE 1,000 ML IV ONE (15:48)
[2018-08-06] MEDS ORDERED: predniSONE 5 MG TABLET ONE (21:24)
[2018-08-06] MEDS: predniSONE 10 MG TABLET PO SCH (21:25)
[2018-08-06] MEDS: ALBUTEROL SULFATE 2.5 MG/0.5 ML VIAL.NEB IH PRN (21:29)
[2018-08-07] MEDS ORDERED: MORPHINE SULFATE 2 MG/ML DISP.SYRIN IV ONE (01:14)
[2018-08-07] MEDS: NORMAL SALINE 1,000 ML IV PRN ×2 (01:31→09:47)
[2018-08-07 02:08] LABS: Urine Bilirubin Negative (NEGATIVE); Urine Ketone Negative (NEGATIVE); Urine Nitrite Negative (NEGATIVE); Urine Protein Negative (NEGATIVE); Urine Specific Gravity >=1.030 SP.GR. (1.005-1.030); Urine Urobilinogen Normal (NORMAL)
[2018-08-07 02:18] LABS: Urine Appearance Slightly Cloudy (CLEAR); Urine Bacteria 1+; Urine Blood 5 /ul (NEGATIVE); Urine Color Dark Yellow; Urine RBC TRACE /hpf (0-5); Urine WBC 0-5 /hpf (0-5)
[2018-08-07] MEDS: POTASSIUM CHLORIDE 20 MEQ TABLET.SA PO SCH (02:55)
[2018-08-07] MEDS: WARFARIN SODIUM 5 MG TABLET PO SCH (02:55)
[2018-08-07] MEDS: ROSUVASTATIN CALCIUM 20 MG TABLET PO SCH (02:55)
[2018-08-07] MEDS: ALBUTEROL SULFATE 2.5 MG/0.5 ML VIAL.NEB IH PRN (02:57)
[2018-08-07] MEDS: CLINDAMYCIN PHOSPHATE 300 MG in DEXTROSE 5 % IN WATER 50 ML IV SCH ×2 (03:00)
[2018-08-07] MEDS: MORPHINE SULFATE 2 MG/ML DISP.SYRIN IV PRN ×3 (04:42→16:54)
[2018-08-07 05:38] LABS: Hematocrit 42.8 % (42.0-52.0); Hemoglobin 13.6 gm/dL (13.5-18.0); Mean Cell Volume 94.1 fl (78-100); Mean Corpuscular Hemoglobin 29.9 pg (27-31); Mean Corpuscular Hgb Conc 31.8 g/dl (32-36); Mean Platelet Volume 10.4 fl (8-11.3); Neutrophil # 8.7 K/mm3 (1.3-6.0); Platelet Count 253 K/mm3 (150-450); Red Blood Count 4.55 M/mm3 (4.7-6.0); Red Cell Distribution Width 16.9 % (11.5-14.0); White Blood Count 10.3 K/mm3 (4.0-10.5)
[2018-08-07 05:42] LABS: Albumin * 2.5 gm/dl (3.4-5.0); Anion Gap 11.7 mmol/L (6.8-13.8); BUN/Creatinine Ratio 14.3 (9.0-21.6); Bilirubin, Total 0.6 mg/dL (0.0-1.1); Ca. Corrected For Albumin 8.7 mg/dL (8.4-10.2); Calcium * 7.8 mg/dL (7.9-10.9); Carbon Dioxide 30.1 mmol/L (24-32.6); Magnesium 1.7 mg/dL (1.2-2.8); Potassium 4.8 mmol/L (3.4-4.6); Total Protein 7.1 gm/dL (6.2-8.2)
[2018-08-07] MEDS: ALBUTEROL SULFATE 2.5 MG/0.5 ML VIAL.NEB IH SCH ×4 (06:14→18:14)
[2018-08-07] MEDS: INSULIN NPH HUMAN ISOPHANE 100 UNITS/ML VIAL SC SCH (07:35)
[2018-08-07] MEDS ORDERED: FUROSEMIDE 10 MG/ML VIAL IV ONE (08:38)
[2018-08-07 09:00] LABS: Prothrombin Time (Patient) 44.7 Seconds (9.0-11.0)
[2018-08-07] MEDS: predniSONE 10 MG TABLET PO SCH ×2 (09:03→20:31)
[2018-08-07] MEDS: LORATADINE 10 MG TABLET PO SCH (09:03)
[2018-08-07] MEDS: CYCLOBENZAPRINE HCL 10 MG TABLET PO SCH ×3 (09:03→16:22)
[2018-08-07 09:15] LABS: INR 4.4 INR (0.90-1.10)
--- NOTE | 2018-08-07 09:37 | PN ---
Subjective - Date and Time Seen Date: 08/07/18 Time: 09:00 Subjective Narrative: Bar Rodriguez appears to be feeling better today. He is sitting up in a chair this morning. Although sitting up in a chair he is doing so reluctantly due to the pain in his legs. The cellulitis appears to be better to m, less bright redness and less fever but a dqrker red and violacous color persists. Laboratory: The CBC continues to have a normal white count and differential. Hemoglobin and hematocrit red cell count platelet counts are all normal as well. Chemistriesthe renal status has not changed any in spite of continued rehydration. He has gained 5 kg from yesterday from fluid volume replacement. His vital signs are much better and his blood pressure is 136/76 this morning. But the kidney function has not improved in spite of rehydration. Further, he has bumped up his transaminases from 3-4 times what they were yesterday. Alkaline phosphatase and bilirubin are still normal. He has had no diarrhea as a sign of clindamycin toxicity. Although the clindamycin does not require any dosage adjustment for renal or hepatic insufficiency, now that both pathways are impaired I suspect that clindamycin is causing the above transaminases or perhaps an interaction with rosuvastatin and acetaminophen. I discontinued all 3 medicines this morning. His morbilliform rash is worse today and it was worse yesterday and it was day before. Actually the day before I thought it better. I'm adding loratadine 10 mg a day as an antihistamine. I'll continue the prednisone twice daily as it has not affected his white count or his blood sugar. I'm going to give him 80 mg of Lasix IV push to see if I can crack his kidneys open. We'll do a bladder scan before. He has not voided through the night. His wheezing is worse again this morning. Yesterday's chest x-ray did not show any cardiomegaly or pulmonary vascular congestion. A worsening of his asthma may be allergic as well. He is not air hungry or tachypnea. But he does have audible wheezes. His EKG yesterday shows a right bundle branch block and left anterior fascicular block and normal sinus rhythm and rate well controlled. There are small Q waves in leads 2 and 3 and aVF. It's very difficult to read an old [place] but it would be possible in the inferior posterior wall or the anterior wall in the past. There does not appear to be any acute injury pattern. His troponin is normal. Today I will try to get his kidneys functioning. If he is not began voiding by later today or the latest tomorrow morning especially been no improvement in his lab values and I will recommend transferring him to tertiary care facility. Clinically, he appears better and his vital signs reflect that. He is stronger and able to get up and transfer to the bedside chair which is the first time he's done that since being in the hospital. But his lab values and the changes overnight are concerning. Objective - Review of Systems Generalized/Overall Review: Reports: Weakness, Malaise, Weight gain EENTM: Reports: No Symptoms Reported Respiratory: Reports: Wheezing Cardiac: Reports: Chest Pain, Edema Abdominal: Reports: No Symptoms Reported. Denies: Nausea, Vomiting, Diarrhea Genitourinary Symptoms: Reports: Oliguria Musculoskeletal Complaints: Reports: No Symptoms Reported Neurological: Reports: Weakness Skin: Reports: Other - Cellulitis in lower extremities are now deep red and violaceous in color and less fever than yesterday. - Vitals Vitals: Last Vital Signs Temp 36.4 C 08/07/18 07:52 Pulse 56 L 08/07/18 07:52 Resp 20 08/07/18 07:52 BP 133/69 08/07/18 07:52 Pulse Ox 93 08/07/18 07:52 - Abnormal Lab Findings Abnormal Lab Findings: Abnormal Lab Results 08/06/18 08/07/18 08/07/18 Range/Units 15:08 01:20 01:50 RBC (4.7-6.0) M/mm3 MCHC (32-36) g/dl RDW (11.5-14.0) % Immature Gran % (Auto) (0.001-0.429) % Immature Gran # (Auto) (0.000-0.0310) K/mm3 Neutrophils % (42-75.0) % Lymphocytes % (20-51) % Neutrophils # (1.3-6.0) K/mm3 Lymphocytes # (1.5-3.5) k/mm3 D-Dimer 0.77 H (0.19-0.49) ug/mL Potassium 4.7 H (3.4-4.6) mmol/L BUN 46 H (6-23) mg/dL Creatinine 3.38 H (0.4-1.4) mg/dL Est GFR (Non-Af Amer) 19 L (60-130) mL/min Random Glucose 185 H D (70-110) mg/dL Calcium (7.9-10.9) mg/dL AST (0-48) U/L ALT (19-67) U/L Albumin (3.4-5.0) gm/dl Urine Blood 5 H (NEGATIVE) /ul Urine Bacteria 1+ H (NONE) 08/07/18 08/07/18 Range/Units 05:26 05:26 RBC 4.55 L (4.7-6.0) M/mm3 MCHC 31.8 L (32-36) g/dl RDW 16.9 H (11.5-14.0) % Immature Gran % (Auto) 0.50 H (0.001-0.429) % Immature Gran # (Auto) 0.05 H (0.000-0.0310) K/mm3 Neutrophils % 84.0 H (42-75.0) % Lymphocytes % 6.3 L (20-51) % Neutrophils # 8.7 H (1.3-6.0) K/mm3 Lymphocytes # 0.65 L (1.5-3.5) k/mm3 D-Dimer (0.19-0.49) ug/mL Potassium 4.8 H (3.4-4.6) mmol/L BUN 48 H (6-23) mg/dL Creatinine 3.36 H (0.4-1.4) mg/dL Est GFR (Non-Af Amer) 20 L (60-130) mL/min Random Glucose 175 H (70-110) mg/dL Calcium 7.8 L (7.9-10.9) mg/dL AST 108 H (0-48) U/L ALT 83 H (19-67) U/L Albumin 2.5 L (3.4-5.0) gm/dl Urine Blood (NEGATIVE) /ul Urine Bacteria (NONE) - EKG/Xray Findings EKG: NSR, nonspecific ST T wave chg, other - RBBB and L. ant fascicular blocks. Widened QRS and strong Left axis deviation. EKG read: Interp. by me XRAY: chest Interpretation: Reviewed by me - Exam Constitutional: Present: Alert, Oriented x3, Cooperative, Well developed, Well nourished, Moderate distress, Lethargic, Morbidly obese ENT Exam: Present: normal ENT inspection, hearing grossly normal, pharynx normal, TMs normal Neck: Present: non-tender, full range of motion, supple, normal inspection, trac hea midline Breasts: Present: Nontender Respiratory: Present: chest non-tender, wheezing, expiration (prolonged) Cardiovascular/Chest: Present: normal peripheral pulses, regular rate, rhythm, no chest tenderness, no gallop, no JVD, no murmur, no rub Abdomen: Present: Normal bowel sounds, soft, nontender, nondistended, no rebound tenderness, no hepatospenomegaly, no masses /Rectal: Present: Exam deferred Extremity: Present: inflammation - cellulitis in both LEs, lower extremity edema Skin Exam: Present: pallor Lymphatic: Present: other - Lower extremity cellulitis dark red and violacious color. Neurologic: Present: extrusion operator II-XII nml as tested, abnormal gait - antalgic Appearance: Present: appropriate insight, disheveled Eye contact: Present: cooperative, good eye contact Thoughts: Present: normal thought pattern Assessment/Plan Plan Narrative: 1. Discontinue simvastatin, acetaminophen, potassium, and clindamycin. 2. Furosemide 80 mg IV push now 3. Bladder scan 4. Saline lock IV 5. Add loratadine as needed antihistamine and continue prednisone 6. If the furosemide challenge fails I'll double her dose to 160 mg and if that fails then I will probably transfer him to a tertiary care facility. 7. Morning lab ordered - Problems/Diagnosis (1) Cellulitis Problem: Acute Qualifiers: Site of cellulitis: extremity Site of cellulitis of extremity: lower extremity Laterality: unspecified laterality Qualified Code(s): L03.119 - Cellulitis of unspecified part of limb (2) Elevated blood pressure Problem: Chronic (3) Abnormal LFTs Problem: Acute (4) Oliguria and anuria Problem: Acute (5) Asthma Problem: Acute Qualifiers: Asthma severity: moderate Asthma persistence: persistent Asthma complication type: with acute exacerbation Qualified Code(s): J45.41 - Moderate persistent asthma with (acute) exacerbation (6) Allergic reaction caused by a drug Problem: Acute Qualifiers: Encounter type: initial encounter Qualified Code(s): T78.40XA - Allergy, unspecified, initial encounter (7) Type II diabetes mellitus Problem: Chronic Qualifiers: Diabetes mellitus intermodal dispatcher insulin use: without shelter use Diabetes mellitus complication status: with kidney complications Diabetes mellitus complication detail: with chronic kidney disease Chronic kidney disease stage: stage 3 (moderate) Qualified Code(s): E11.22 - Type 2 diabetes mellitus with diabetic chronic kidney disease; N18.3 - Chronic kidney disease, stage 3 (moderate) (8) Acute renal insufficiency Problem: Acute (9) Morbid obesity Problem: Chronic (10) Diabetes mellitus Problem: Chronic Qualifiers: Diabetes mellitus type: due to underlying condition Diabetes mellitus complication status: with neurologic complications Diabetes mellitus complication detail: with other neurological complication (11) Eczema Problem: Chronic Qualifiers: Eczema type: intrinsic Qualified Code(s): L20.84 - Intrinsic (allergic) eczema (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
[2018-08-07] MEDS: INSULIN LISPRO 100 UNITS/ML VIAL SC SCH ×2 (11:53→16:23)
[2018-08-07] MEDS: LEVOTHYROXINE SODIUM 100 MCG TABLET PO SCH (14:13)
[2018-08-07] MEDS: CHOLECALCIFEROL 1,000 UNIT CAPSULE PO SCH (14:13)
[2018-08-07] MEDS: AMIODARONE HCL 200 MG TABLET PO SCH (14:13)
[2018-08-07] MEDS: LEVOTHYROXINE SODIUM 25 MCG TABLET PO SCH (14:14)
[2018-08-07] MEDS ORDERED: hydrOXYzine PAMOATE 50 MG CAPSULE PO PRN (23:50)
[2018-08-08] MEDS ORDERED: hydrOXYzine PAMOATE 25 MG CAPSULE ONE (00:11)
[2018-08-08] MEDS: MORPHINE SULFATE 2 MG/ML DISP.SYRIN IV PRN (04:25)
[2018-08-08] MEDS: ALBUTEROL SULFATE 2.5 MG/0.5 ML VIAL.NEB IH SCH ×4 (06:12→18:17)
[2018-08-08 06:31] LABS: Hematocrit 44.9 % (42.0-52.0); Hemoglobin 14.1 gm/dL (13.5-18.0); Mean Cell Volume 95.1 fl (78-100); Mean Corpuscular Hemoglobin 29.9 pg (27-31); Mean Corpuscular Hgb Conc 31.4 g/dl (32-36); Mean Platelet Volume 10.3 fl (8-11.3); Neutrophil % 91.2 % (42-75.0); Platelet Count 259 K/mm3 (150-450); Red Blood Count 4.72 M/mm3 (4.7-6.0); Red Cell Distribution Width 16.8 % (11.5-14.0); White Blood Count 15.3 K/mm3 (4.0-10.5)
[2018-08-08 07:05] LABS: Albumin * 2.3 gm/dl (3.4-5.0); Anion Gap 10.8 mmol/L (6.8-13.8); BUN/Creatinine Ratio 16.6 (9.0-21.6); Bilirubin, Total 0.6 mg/dL (0.0-1.1); Ca. Corrected For Albumin 9.1 mg/dL (8.4-10.2); Calcium * 8.1 mg/dL (7.9-10.9); Carbon Dioxide 30.4 mmol/L (24-32.6); Potassium 5.2 mmol/L (3.4-4.6); Total Protein 6.8 gm/dL (6.2-8.2)
[2018-08-08 07:08] LABS: INR 4.73 INR (0.90-1.10)
[2018-08-08] MEDS: INSULIN LISPRO 100 UNITS/ML VIAL SC SCH ×3 (07:57→16:56)
[2018-08-08] MEDS: CYCLOBENZAPRINE HCL 10 MG TABLET PO SCH ×3 (08:46→17:00)
[2018-08-08] MEDS: LORATADINE 10 MG TABLET PO SCH (08:46)
[2018-08-08] MEDS: predniSONE 10 MG TABLET PO SCH ×2 (08:46→21:49)
--- NOTE | 2018-08-08 11:57 | DS ---
Transfer Discharge Summary - Diagnosis(s)/Problems (1) Cellulitis Problem: Acute (2) Abnormal LFTs Problem: Acute (3) Oliguria and anuria Problem: Acute (4) Asthma Problem: Acute (5) Allergic reaction caused by a drug Problem: Acute (6) Type II diabetes mellitus Problem: Chronic (7) Acute renal insufficiency Problem: Acute (8) Morbid obesity Problem: Chronic (9) Diabetes mellitus Problem: Chronic (10) Porphyria Problem: Chronic (11) Elevated blood pressure Problem: Chronic - Course Description of Stay: Bar Rodriguez is a 68-year-old morbidly obese male who had presented to ER approximately 2 days prior to admission for cellulitis in the lower extremities. He was started on Bactrim DS orally and sent home. The cellulitis seemed to be getting worse and so he returned 2 days later to the ER. He had developed a faint pinkish non-confluent rash and it was thought perhaps it was a allergic reaction to sulfa. Because the cellulitis was worse he was admitted for IV antibiotics (clindamycin) on observation status initially. Then found that his baseline EGFR was 1.3 and it had jumped to 2.3 and in the next day to 3.38 and the next day 3.36 and today is 3.37. His blood pressure was also low with systolics in the low 80s and he was hypersomnolent, lightheaded, and weak. I bolused him with approximately 5 L of fluid and his blood pressure finally came up over 100 and yesterday was 137 systolic and then has been between 102 and 110 systolic through last night and today. I gave him 1 dose of Lasix yesterday and he did urinate about 750 mL. He did urinate last night and has again this morning but he definitely has oliguria. His weight has climbed each day and now is at 152 kg this morning. Yesterday was 150 kg. On admission he was 145 kg. He was placed on clindamycin on admission given 600 mg loading dose in the emergency room and then I had kept him on 300 mg 4 times a day. Yesterday however he bumped his transaminases and his renal studies did not improve. I withheld the clindamycin. One of the transaminases has declined slightly today but the other climbed slightly and so overall there is really not much change transaminase elevation. The skin rash that initially was just light splotches and non-confluent was much more reddened yesterday and today it is much wider and deeper red in color, and is widely confluent over the trunk. It now involves all of the skin from the face to the feet. Initially it was not pruritic but last night it became intensely pruritic. I have examined him several times and have not found any bulla that might suggest Buckley-Erwin syndrome. I still believe this to be a drug-induced rash. His pulmonary status is that he has underlying COPD. This is made somewhat worse by his severe obesity. However he has had a lot of asthma during this admission. The portable chest x-ray that was done 2 days ago did not show any cardiomegaly or pulmonary vascular congestion. There is no definite pneumonia present. He has been receiving breathing treatments and I started him on prednisone 10 mg by mouth twice a day both for his asthma and for his dermatitis. Today he has a bump in his white cells to 15,000 which may be from the prednisone or perhaps some other infectious process that I haven't found. His EKG shows normal sinus rhythm but he also has a left bundle branch block and a left anterior hemiblock that would be hiding any previous MIs. There are small Q waves in leads 2,3 and aVF and he could've had an old anteroseptal wall DC as well. An echocardiogram has not been done. He has not had any chest pain that is suggestive of angina. The cause of his acute kidney injury is probably over aggressive use of loop diuretics. He was getting 80 mg of furosemide twice a day and Zaroxolyn once a day. His CO2 and his anion gap are normal. Therefore I think renal tubular acidosis is unlikely. Unfortunately rehydration has not corrected his renal insufficiency. His EGFR remains in the low 20s. One blood culture has grown out a light growth of gram-negative bacillus. Apparently there wasn't enough growth to do a full panel of sensitivities but I did have him drop a disc of clindamycin to see if it would inhibit growth. Results are still pending. Overall, he is stronger than when he came in. He doesn't like to get up because weightbearing causes severe pain in his lower legs where his cellulitis has been. But he is able to do so and transfer to a chair which he was not able to do on admission and for about 24 hours afterwards because of his hypotension, lightheadedness, weakness etc. Since he is not improving with therapy I can offer here I have suggested that he go to [facility] where he will have a variety of specialists and subspecialists that can be brought to bear on his behalf. He is in agreement to be transferred. Procedures Performed: none - Results and Findings Results and Findings: Laboratory Results - last 24 hr 08/08/18 08/08/18 08/08/18 06:00 06:20 06:20 WBC 15.3 H D RBC 4.72 Hgb 14.1 Hct 44.9 MCV 95.1 MCH 29.9 MCHC 31.4 L RDW 16.8 H Plt Count 259 MPV 10.3 Immature Gran % (Auto) 0.70 H Immature Gran # (Auto) 0.11 H Neutrophils % 91.2 H Lymphocytes % 2.6 L Monocytes % 2.3 Eosinophils % 3.1 H Basophils % 0.1 Nucleated RBC % 0.0 Neutrophils # 14.0 H Lymphocytes # 0.40 L Monocytes # 0.4 Eosinophils # 0.5 Absolute Basophils 0.0 PT 48.0 H INR (Anticoag Therapy) 4.73 H* Sodium 135 Plasma Sodium 135 Potassium 5.2 H Chloride 99 Carbon Dioxide 30.4 Anion Gap 10.8 BUN 56 H Creatinine 3.37 H Est GFR (Non-Af Amer) 20 L BUN/Creatinine Ratio 16.6 Random Glucose 113 H D Calcium 8.1 Calcium Adj for Albumin 9.1 Total Bilirubin 0.6 AST 78 H ALT 89 H Alkaline Phosphatase 117 Total Protein 6.8 Albumin 2.3 L - Medications Medications: Active Medications Albuterol Sulfate (Albuterol Sulfate 2.5 Mg/0.5ml) 2.5 mg IH Q4H PRN PRN Reason: Shortness Of Breath Stop: 09/05/18 06:21 Last Admin: 08/07/18 02:57 Dose: 2.5 mg Documented by: Albuterol Sulfate (Albuterol Sulfate 2.5 Mg/0.5ml) 2.5 mg IH QIDRT [facility] Stop: 09/05/18 11:01 Last Admin: 08/08/18 11:05 Dose: 2.5 mg Documented by: Amiodarone HCl (Cordarone) 200 mg PO DAILY@1430 [facility] Stop: 09/05/18 14:31 Last Admin: 08/07/18 14:13 Dose: 200 mg Documented by: Cholecalciferol (Vitamin D) 2,000 unit PO DAILY@1430 [facility] Stop: 09/05/18 14:31 Last Admin: 08/07/18 14:13 Dose: 2,000 unit Documented by: Cyclobenzaprine HCl (Flexeril) 10 mg PO TID [facility] Stop: 09/05/18 09:01 Last Admin: 08/08/18 08:46 Dose: 10 mg Documented by: Furosemide (Lasix) 80 mg PO BID@023,1430 [facility] Stop: 09/05/18 02:31 Last Admin: 08/06/18 02:31 Dose: 80 mg Documented by: Hydroxyzine Pamoate (Vistaril) 50 mg PO Q6H PRN PRN Reason: Itching Stop: 09/06/18 23:51 Last Admin: 08/08/18 00:13 Dose: 50 mg Documented by: Insulin Human Lispro (Humalog) 25 units SC ACINS [facility] Stop: 09/06/18 12:01 Last Admin: 08/08/18 07:57 Dose: Not Given Documented by: Levothyroxine Sodium (Synthroid) 25 mcg PO DAILY@1430 [facility] Stop: 09/05/18 14:31 Last Admin: 08/07/18 14:14 Dose: 25 mcg Documented by: Levothyroxine Sodium (Synthroid) 200 mcg PO DAILY@1430 [facility] Stop: 09/05/18 14:31 Last Admin: 08/07/18 14:13 Dose: 200 mcg Documented by: Loratadine (Claritin) 10 mg PO DAILY [facility] Stop: 09/06/18 09:01 Last Admin: 08/08/18 08:46 Dose: 10 mg Documented by: Morphine Sulfate (Morphine Sulfate) 2 mg IV Q2H PRN PRN Reason: Pain Stop: 09/06/18 01:18 Last Admin: 08/08/18 04:25 Dose: 2 mg Documented by: Potassium Chloride (K-Dur) 20 meq PO 0230,1430 [facility] Stop: 09/05/18 02:31 Last Admin: 08/07/18 02:55 Dose: 20 meq Documented by: Prednisone (Prednisone) 10 mg PO BID [facility] Stop: 09/05/18 21:01 Last Admin: 08/08/18 08:46 Dose: 10 mg Documented by: Discontinued Medications Acetaminophen (Tylenol) 500 mg PO Q4H PRN PRN Reason: Pain Stop: 09/04/18 18:38 Last Admin: 08/07/18 00:41 Dose: 500 mg Documented by: Albuterol/Ipratropium (Duoneb 2.5-0.5mg/3ml Soln) 3 ml IH ONCE ONE Stop: 08/05/18 14:03 Last Admin: 08/05/18 14:15 Dose: 3 ml Documented by: Furosemide (Lasix) 80 mg IV ONCE ONE Stop: 08/07/18 08:39 Last Admin: 08/07/18 09:05 Dose: 80 mg Documented by: Clindamycin Phosphate 600 mg/ (Dextrose/Water) 104 mls @ 300 mls/hr IV ONCE ONE; Protocol Stop: 08/05/18 15:53 Last Infusion: 08/05/18 16:17 Dose: Infused Documented by: Clindamycin Phosphate 300 mg/ (Dextrose/Water) 52 mls @ 300 mls/hr IV 0400,1000,1600,2200 [facility]; Protocol Stop: 09/04/18 22:01 Last Infusion: 08/07/18 03:11 Dose: Infused Documented by: Sodium Chloride (Sodium Chloride 0.9%) 1,000 mls @ 999 mls/hr IV .Q1H1M PRN PRN Reason: HYDRATION Stop: 09/05/18 09:53 Last Infusion: 08/07/18 10:36 Dose: 0 mls/hr Documented by: Sodium Chloride (Sodium Chloride 0.9%) 1,000 mls @ 999 mls/hr IV .Q1H1M ONE Stop: 08/06/18 16:48 Last Infusion: 08/06/18 17:00 Dose: Infused Documented by: Insulin Human NPH (Humulin N) 25 units SC BIDAC [facility] Stop: 09/05/18 07:01 Last Admin: 08/07/18 07:35 Dose: 25 units Documented by: Morphine Sulfate (Morphine Sulfate) 2 mg IV ONCE ONE Stop: 08/05/18 14:20 Last Admin: 08/05/18 14:21 Dose: 2 mg Documented by: Morphine Sulfate (Morphine Sulfate) 4 mg IV ONCE ONE Stop: 08/05/18 14:53 Last Admin: 08/05/18 14:57 Dose: 4 mg Documented by: Morphine Sulfate (Morphine Sulfate) 2 mg IV ONCE ONE Stop: 08/07/18 01:15 Last Admin: 08/07/18 01:27 Dose: 2 mg Documented by: Rosuvastatin Calcium (Crestor) 20 mg PO DAILY@0230 [facility] Stop: 09/05/18 02:31 Last Admin: 08/07/18 02:55 Dose: 20 mg Documented by: Warfarin Sodium (Coumadin) 5 mg PO MoTuWeThFrSa@0230 [facility] Stop: 09/05/18 02:31 Last Admin: 08/07/18 02:55 Dose: 5 mg Documented by: - Disposition Disposition: Short Term Hospital Inpatient Condition: Poor Discharge Date: 08/08/18
[2018-08-08] MEDS: AMIODARONE HCL 200 MG TABLET PO SCH (13:40)
[2018-08-08] MEDS: LEVOTHYROXINE SODIUM 25 MCG TABLET PO SCH (13:40)
[2018-08-08] MEDS: LEVOTHYROXINE SODIUM 100 MCG TABLET PO SCH (13:40)
[2018-08-08] MEDS: CHOLECALCIFEROL 1,000 UNIT CAPSULE PO SCH (13:41)
--- NOTE | 2018-08-08 16:31 | PN ---
Subjective - Date and Time Seen Date: 08/08/18 Time: 08:15 Subjective Narrative: Bar Rodriguez is a 68-year-old morbidly obese male who had presented to ER approximately 2 days prior to admission for cellulitis in the lower extremities. He was started on Bactrim DS orally and sent home. The cellulitis seemed to be getting worse and so he returned 2 days later to the ER. He had developed a faint pinkish non-confluent rash and it was thought perhaps it was a allergic reaction to sulfa. Because the cellulitis was worse he was admitted for IV antibiotics (clindamycin) on observation status initially. Then found that his baseline EGFR was 1.3 and it had jumped to 2.3 and in the next day to 3.38 and the next day 3.36 and today is 3.37. His blood pressure was also low with systolics in the low 80s and he was hypersomnolent, lightheaded, and weak. I bolused him with approximately 5 L of fluid and his blood pressure finally came up over 100 and yesterday was 137 systolic and then has been between 102 and 110 systolic through last night and today. I gave him 1 dose of Lasix yesterday and he did urinate about 750 mL. He did urinate last night and has again this morning but he definitely has oliguria. His weight has climbed each day and now is at 152 kg this morning. Yesterday was 150 kg. On admission he was 145 kg. He was placed on clindamycin on admission given 600 mg loading dose in the emergency room and then I had kept him on 300 mg 4 times a day. Yesterday however he bumped his transaminases and his renal studies did not improve. I withheld the clindamycin. One of the transaminases has declined slightly today but the other climbed slightly and so overall there is really not much change transaminase elevation. The skin rash that initially was just light splotches and non-confluent was much more reddened yesterday and today it is much wider and deeper red in color, and is widely confluent over the trunk. It now involves all of the skin from the face to the feet. Initially it was not pruritic but last night it became intensely pruritic. I have examined him several times and have not found any bulla that might suggest Buckley-Erwin syndrome. I still believe this to be a drug-induced rash. His pulmonary status is that he has underlying COPD. This is made somewhat worse by his severe obesity. However he has had a lot of asthma during this admission. The portable chest x-ray that was done 2 days ago did not show any cardiomegaly or pulmonary vascular congestion. There is no definite pneumonia present. He has been receiving breathing treatments and I started him on prednisone 10 mg by mouth twice a day both for his asthma and for his dermatitis. Today he has a bump in his white cells to 15,000 which may be from the prednisone or perhaps some other infectious process that I haven't found. His EKG shows normal sinus rhythm but he also has a left bundle branch block and a left anterior hemiblock that would be hiding any previous MIs. There are small Q waves in leads 2,3 and aVF and he could've had an old anteroseptal wall [place] as well. An echocardiogram has not been done. He has not had any chest pain that is suggestive of angina. The cause of his acute kidney injury is probably over aggressive use of loop diuretics. He was getting 80 mg of furosemide twice a day and Zaroxolyn once a day. His CO2 and his anion gap are normal. Therefore I think renal tubular acidosis is unlikely. Unfortunately rehydration has not corrected his renal insufficiency. His EGFR remains in the low 20s. One blood culture has grown out a light growth of gram-negative bacillus. Apparently there wasn't enough growth to do a full panel of sensitivities but I did have him drop a disc of clindamycin to see if it would inhibit growth. Results are still pending. Overall, he is stronger than when he came in. He doesn't like to get up because weightbearing causes severe pain in his lower legs where his cellulitis has been. But he is able to do so and transfer to a chair which he was not able to do on admission and for about 24 hours afterwards because of his hypotension, lightheadedness, weakness etc. Since he is not improving with therapy I can offer here I have suggested that he go to [facility] where he will have a variety of specialists and subspecialists that can be brought to bear on his behalf. He is in agreement to be transferred. Objective - Review of Systems Generalized/Overall Review: Reports: Weakness, Malaise EENTM: Reports: No Symptoms Reported Respiratory: Reports: Cough, Wheezing Cardiac: Reports: No Symptoms Reported, Other - He has a history of coronary artery disease and has had 2 MIs and 2 stents placed. He thinks that one was in the LAD and one in the right coronary. Abdominal: Reports: No Symptoms Reported Genitourinary Symptoms: Reports: Oliguria Musculoskeletal Complaints: Reports: No Symptoms Reported Neurological: Reports: Weakness Skin: Reports: Rash, Change in Color - The rash is now diffuse and from head to toe is also darker in color particularly over the abdomen. His deep violaceous color. There is no bulla present. - Vitals Vitals: Last Vital Signs Temp 36.8 C 08/08/18 10:11 Pulse 64 08/08/18 11:15 Resp 28 H 08/08/18 11:15 BP 110/41 08/08/18 10:11 Pulse Ox 93 08/08/18 11:05 - Abnormal Lab Findings Abnormal Lab Findings: Abnormal Lab Results 08/08/18 08/08/18 08/08/18 Range/Units 06:00 06:20 06:20 WBC 15.3 H D (4.0-10.5) K/mm3 MCHC 31.4 L (32-36) g/dl RDW 16.8 H (11.5-14.0) % Immature Gran % (Auto) 0.70 H (0.001-0.429) % Immature Gran # (Auto) 0.11 H (0.000-0.0310) K/mm3 Neutrophils % 91.2 H (42-75.0) % Lymphocytes % 2.6 L (20-51) % Eosinophils % 3.1 H (0.0-3.0) % Neutrophils # 14.0 H (1.3-6.0) K/mm3 Lymphocytes # 0.40 L (1.5-3.5) k/mm3 PT 48.0 H (9.0-11.0) Seconds INR (Anticoag Therapy) 4.73 H* (0.90-1.10) INR Potassium 5.2 H (3.4-4.6) mmol/L BUN 56 H (6-23) mg/dL Creatinine 3.37 H (0.4-1.4) mg/dL Est GFR (Non-Af Amer) 20 L (60-130) mL/min Random Glucose 113 H D (70-110) mg/dL AST 78 H (0-48) U/L ALT 89 H (19-67) U/L Albumin 2.3 L (3.4-5.0) gm/dl - Exam Constitutional: Present: Alert, Oriented x3, Cooperative, Well developed, Well nourished, No distress ENT Exam: Present: normal ENT inspection, hearing grossly normal, pharynx normal, TMs normal Neck: Present: non-tender, full range of motion, supple, normal inspection, trachea midline, limited range of motion Breasts: Present: Nontender Respiratory: Present: no respiratory distress, no accessory muscle use, wheezing Cardiovascular/Chest: Present: normal peripheral pulses, regular rate, rhythm, no chest tenderness, no edema, no gallop, no JVD, no murmur Abdomen: Present: Normal bowel sounds, soft, nontender, nondistended, no rebound tenderness, no hepatospenomegaly, no masses, obese /Rectal: Present: Exam deferred Extremity: Present: leg pain - Bilateral lower extremities due to cellulitis Skin Exam: Present: warm/dry, skin rash - Diffuse, confluent, deep red and violaceous color especially over the abdomen. The rash is seen on the face and on the feet. Lymphatic: Present: no adenopathy Neurologic: Present: transitions manager II-XII nml as tested Appearance: Present: appropriate appearance, appropriate insight, disheveled Eye contact: Present: cooperative, good eye contact, normal speech Thoughts: Present: normal thought pattern, no apparent hallucination Assessment/Plan Plan Narrative: Plan 1: I contacted [facility] and he reviewed the chart information that I have sent them. Because of bed shortage they're he will have to go through administrative evaluation and it may be tomorrow or Friday before we hear back that they have a bed for him. In the meantime I will diurese him again this evening and see what kind of output we have. I'll reevaluate his lab work again in the morning. Continue respiratory therapy treatments. I'm going to add triamcinolone 0.5% cream to put on the legs and try some on some of the skin rashes present. He is on prednisone and hydroxyzine but the rash does not seem to be improving. - Problems/Diagnosis (1) Cellulitis Problem: Acute Qualifiers: Site of cellulitis: extremity Site of cellulitis of extremity: lower extre mity Laterality: unspecified laterality Qualified Code(s): L03.119 - Cellulitis of unspecified part of limb (2) Abnormal LFTs Problem: Acute (3) Oliguria and anuria Problem: Acute (4) Asthma Problem: Acute Qualifiers: Asthma severity: moderate Asthma persistence: persistent Asthma complication type: with acute exacerbation Qualified Code(s): J45.41 - Moderate persistent asthma with (acute) exacerbation (5) Allergic reaction caused by a drug Problem: Acute Qualifiers: Encounter type: initial encounter Qualified Code(s): T78.40XA - Allergy, unspecified, initial encounter (6) Type II diabetes mellitus Problem: Chronic Qualifiers: Diabetes mellitus penitentiary insulin use: without terminal manager use Diabetes mellitus complication status: with kidney complications Diabetes mellitus complication detail: with chronic kidney disease Chronic kidney disease stage: stage 3 (moderate) Qualified Code(s): E11.22 - Type 2 diabetes mellitus with diabetic chronic kidney disease; N18.3 - Chronic kidney disease, stage 3 (moderate) (7) Acute renal insufficiency Problem: Acute (8) Morbid obesity Problem: Chronic (9) Diabetes mellitus Problem: Chronic Qualifiers: Diabetes mellitus type: due to underlying condition Diabetes mellitus complication status: with neurologic complications Diabetes mellitus complication detail: with other neurological complication (10) Rash due to allergy Problem: Acute (11) Elevated blood pressure Problem: Chronic (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
[2018-08-08] MEDS: FUROSEMIDE 10 MG/ML VIAL IV SCH (17:00)
[2018-08-08] MEDS ORDERED: TRIAMCINOLONE ACETONIDE 15 APPL TUBE TP ONE (21:34)
[2018-08-08] MEDS: TRIAMCINOLONE ACETONIDE 15 APPL TUBE TP SCH (21:49)
[2018-08-09] MEDS ORDERED: WARFARIN SODIUM 1 TAB TAB PO SCH (02:30)
[2018-08-09] MEDS: ALBUTEROL SULFATE 2.5 MG/0.5 ML VIAL.NEB IH SCH ×2 (06:06→14:39)
[2018-08-09 06:42] LABS: Hematocrit 44.2 % (42.0-52.0); Hemoglobin 13.9 gm/dL (13.5-18.0); Mean Cell Volume 93.6 fl (78-100); Mean Corpuscular Hemoglobin 29.4 pg (27-31); Mean Corpuscular Hgb Conc 31.4 g/dl (32-36); Mean Platelet Volume 10.1 fl (8-11.3); Neutrophil # 17.4 K/mm3 (1.3-6.0); Neutrophil % 89.6 % (42-75.0); Platelet Count 264 K/mm3 (150-450); Red Blood Count 4.72 M/mm3 (4.7-6.0); Red Cell Distribution Width 16.7 % (11.5-14.0); White Blood Count 19.4 K/mm3 (4.0-10.5)
[2018-08-09 06:56] LABS: Albumin * 2.1 gm/dl (3.4-5.0); Anion Gap 12.9 mmol/L (6.8-13.8); BUN/Creatinine Ratio 18.9 (9.0-21.6); Bilirubin, Total 0.6 mg/dL (0.0-1.1); Ca. Corrected For Albumin 9.4 mg/dL (8.4-10.2); Calcium * 8.2 mg/dL (7.9-10.9); Carbon Dioxide 27.7 mmol/L (24-32.6); Potassium 5.6 mmol/L (3.4-4.6); Total Protein 6.4 gm/dL (6.2-8.2)
[2018-08-09 06:57] LABS: Prothrombin Time (Patient) 34.8 Seconds (9.0-11.0)
[2018-08-09 06:59] LABS: INR 3.44 INR (0.90-1.10)
[2018-08-09] MEDS: INSULIN LISPRO 100 UNITS/ML VIAL SC SCH ×2 (07:29→11:29)
[2018-08-09] MEDS ORDERED: NORMAL SALINE 1,000 ML IV PRN (09:45)
[2018-08-09] MEDS: predniSONE 10 MG TABLET PO SCH (09:52)
[2018-08-09] MEDS: LORATADINE 10 MG TABLET PO SCH (09:52)
[2018-08-09] MEDS: CYCLOBENZAPRINE HCL 10 MG TABLET PO SCH ×2 (09:52→14:24)
[2018-08-09] MEDS: FUROSEMIDE 10 MG/ML VIAL IV SCH (10:04)
[2018-08-09] MEDS: TRIAMCINOLONE ACETONIDE 15 APPL TUBE TP SCH (11:28)
[2018-08-09] MEDS ORDERED: FUROSEMIDE 10 MG/ML VIAL IV SCH (14:00)
[2018-08-09] MEDS: AMIODARONE HCL 200 MG TABLET PO SCH (14:24)
[2018-08-09] MEDS: LEVOTHYROXINE SODIUM 100 MCG TABLET PO SCH (14:24)
[2018-08-09] MEDS: CHOLECALCIFEROL 1,000 UNIT CAPSULE PO SCH (14:24)
[2018-08-09] MEDS: LEVOTHYROXINE SODIUM 25 MCG TABLET PO SCH (14:24)
[2018-08-09 16:02] VITALS: BP 110/41
--- NOTE | 2018-08-09 16:10 | DS ---
Transfer Discharge Summary - Diagnosis(s)/Problems (1) Cellulitis Problem: Acute (2) Abnormal LFTs Problem: Acute (3) Oliguria and anuria Problem: Acute (4) Asthma Problem: Acute (5) Allergic reaction caused by a drug Problem: Acute (6) Type II diabetes mellitus Problem: Chronic (7) Acute renal insufficiency Problem: Acute (8) Morbid obesity Problem: Chronic (9) Diabetes mellitus Problem: Chronic (10) Rash due to allergy Problem: Acute (11) Elevated blood pressure Problem: Chronic (12) Porphyria Problem: Chronic - Course Description of Stay: Bar Rodriguez is a 68-year-old morbidly obese male who had presented to ER approximately 2 days prior to admission for cellulitis in the lower extremities. He was started on Bactrim DS orally and sent home. The cellulitis seemed to be getting worse and so he returned 2 days later to the ER. He had developed a faint pinkish non-confluent rash and it was thought perhaps it was a allergic reaction to sulfa. Because the cellulitis was worse he was admitted for IV antibiotics (clindamycin) on observation status initially. Then found that his baseline EGFR was 1.3 and it had jumped to 2.3 and in the next day to 3.38 and the next day 3.36 and then 3.37 and today is 3.86.. His blood pressure was also low with systolics in the low 80s and he was hypersomnolent, lightheaded, and weak. I bolused him with approximately 5 L of fluid and his blood pressure finally came up over 100 and yesterday was 137 systolic and then has been between 102 and 110 systolic through last night and today. I gave him 1 dose of Lasix yesterday and he did urinate about 750 mL. He did urinate last night and has again this morning but he definitely has oliguria. His weight has climbed each day and now is at 152 kg this morning. Yesterday was 150 kg. On admission he was 145 kg. He was placed on clindamycin on admission given 600 mg loading dose in the emergency room and then I had kept him on 300 mg 4 times a day. Yesterday however he bumped his transaminases and his renal studies did not improve. I withheld the clindamycin. One of the transaminases has declined slightly today but the other climbed slightly and so overall there is really not much change transaminase elevation. The skin rash that initially was just light splotches and non-confluent was much more reddened yesterday and today it is much more diffuse and deeper red in color, and is widely confluent over the trunk. It now involves all of the skin from the face to the feet. Initially it was not pruritic but 2 nights ago it became intensely pruritic. I have examined him several times and have not found any bulla that might suggest Buckley- Erwin syndrome. There is no mucocutaneous involvement. I still believe this to be a drug-induced rash. His pulmonary status is that he has underlying COPD. This is made somewhat worse by his severe obesity. However he has had a lot of asthma during this admission. The portable chest x-ray that was done 2 days ago did not show any cardiomegaly or pulmonary vascular congestion. There is no definite pneumonia present. He has been receiving breathing treatments and I started him on prednisone 10 mg by mouth twice a day both for his asthma and for his dermatitis. Today he has a bump in his white cells to 19,000 which may be from the prednisone or perhaps some other infectious process that I haven't found. His EKG shows normal sinus rhythm but he also has a left bundle branch block and a left anterior hemiblock that would be hiding any previous MIs. There are small Q waves in leads II,III and aVF and he could've had an old anteroseptal wall [place] as well. He reports having had 2 MIs in the past and has had stents placed 2. An echocardiogram has not been done. He has not had any chest pain that is suggestive of angina. The cause of his acute kidney injury is probably over aggressive use of loop diuretics. He was getting 80 mg of furosemide twice a day and Zaroxolyn 2.5 mg once a day. His CO2 and his anion gap are normal. Therefore I think renal tubular acidosis is unlikely. Unfortunately rehydration has not corrected his renal insufficiency. His EGFR remains in the low 20s and actually dropped to 18 today. One blood culture has grown out a light growth of gram-negative bacillus. Apparently there wasn't enough growth to do a full panel of sensitivities but I did have him drop a disc of clindamycin to see if it would inhibit growth. Results are still pending. Overall, he is stronger than when he came in. He doesn't like to get up because weightbearing causes severe pain in his lower legs where his cellulitis has been. But he is able to do so and transfer to a chair which he was not able to do on admission and for about 24 hours afterwards because of his hypotension, lightheadedness, weakness etc. Since he is not improving with therapy that I can offer here I have suggested that he go to [facility] where he will have a variety of specialists and subspecialists that can be brought to bear on his behalf. He is in agreement to be transferred. Procedures Performed: none - Results and Findings Results and Findings: Laboratory Results - last 24 hr 08/09/18 08/09/18 08/09/18 06:30 06:30 06:30 WBC 19.4 H D RBC 4.72 Hgb 13.9 Hct 44.2 MCV 93.6 MCH 29.4 MCHC 31.4 L RDW 16.7 H Plt Count 264 MPV 10.1 Immature Gran % (Auto) 0.70 H Immature Gran # (Auto) 0.14 H Neutrophils % 89.6 H Lymphocytes % 3.1 L Monocytes % 2.3 Eosinophils % 4.2 H Basophils % 0.1 Nucleated RBC % 0.0 Neutrophils # 17.4 H Lymphocytes # 0.60 L Monocytes # 0.5 Eosinophils # 0.8 H Absolute Basophils 0.0 ESR 40 H PT 34.8 H INR (Anticoag Therapy) 3.44 H Sodium Plasma Sodium Potassium Chloride Carbon Dioxide Anion Gap BUN Creatinine Est GFR (Non-Af Amer) BUN/Creatinine Ratio Random Glucose Lactic Acid, Venous Calcium Calcium Adj for Albumin Total Bilirubin AST ALT Alkaline Phosphatase Total Protein Albumin 08/09/18 08/09/18 06:30 09:55 WBC RBC Hgb Hct MCV MCH MCHC RDW Plt Count MPV Immature Gran % (Auto) Immature Gran # (Auto) Neutrophils % Lymphocytes % Monocytes % Eosinophils % Basophils % Nucleated RBC % Neutrophils # Lymphocytes # Monocytes # Eosinophils # Absolute Basophils ESR PT INR (Anticoag Therapy) Sodium 133 Plasma Sodium 133 Potassium 5.6 H Chloride 98 Carbon Dioxide 27.7 Anion Gap 12.9 BUN 69 H Creatinine 3.65 H Est GFR (Non-Af Amer) 18 L BUN/Creatinine Ratio 18.9 Random Glucose 121 H Lactic Acid, Venous 1.1 Calcium 8.2 Calcium Adj for Albumin 9.4 Total Bilirubin 0.6 AST 34 ALT 60 Alkaline Phosphatase 102 Total Protein 6.4 Albumin 2.1 L - Medications Medications: Active Medications Albuterol Sulfate (Albuterol Sulfate 2.5 Mg/0.5ml) 2.5 mg IH Q4H PRN PRN Reason: Shortness Of Breath Stop: 09/05/18 06:21 Last Admin: 08/07/18 02:57 Dose: 2.5 mg Documented by: Albuterol Sulfate (Albuterol Sulfate 2.5 Mg/0.5ml) 2.5 mg IH QIDRT [facility] Stop: 09/05/18 11:01 Last Admin: 08/09/18 14:39 Dose: 2.5 mg Documented by: Amiodarone HCl (Cordarone) 200 mg PO DAILY@1430 [facility] Stop: 09/05/18 14:31 Last Admin: 08/09/18 14:24 Dose: 200 mg Documented by: Cholecalciferol (Vitamin D) 2,000 unit PO DAILY@1430 [facility] Stop: 09/05/18 14:31 Last Admin: 08/09/18 14:24 Dose: 2,000 unit Documented by: Cyclobenzaprine HCl (Flexeril) 10 mg PO TID [facility] Stop: 09/05/18 09:01 Last Admin: 08/09/18 14:24 Dose: 10 mg Documented by: Furosemide (Lasix) 80 mg PO BID@0230,1430 [facility] Stop: 09/05/18 02:31 Last Admin: 08/06/18 02:31 Dose: 80 mg Documented by: Hydroxyzine Pamoate (Vistaril) 50 mg PO Q6H PRN PRN Reason: Itching Stop: 09/06/18 23:51 Last Admin: 08/08/18 00:13 Dose: 50 mg Documented by: Insulin Human Lispro (Humalog) 25 units SC ACINS [facility] Stop: 09/06/18 12:01 Last Admin: 08/09/18 11:29 Dose: 25 units Documented by: Levothyroxine Sodium (Synthroid) 25 mcg PO DAILY@1430 [facility] Stop: 09/05/18 14:31 Last Admin: 08/09/18 14:24 Dose: 25 mcg Documented by: Levothyroxine Sodium (Synthroid) 200 mcg PO DAILY@1430 [facility] Stop: 09/05/18 14:31 Last Admin: 08/09/18 14:24 Dose: 200 mcg Documented by: Loratadine (Claritin) 10 mg PO DAILY [facility] Stop: 09/06/18 09:01 Last Admin: 08/09/18 09:52 Dose: 10 mg Documented by: Morphine Sulfate (Morphine Sulfate) 2 mg IV Q2H PRN PRN Reason: Pain Stop: 09/06/18 01:18 Last Admin: 08/08/18 04:25 Dose: 2 mg Documented by: Potassium Chloride (K-Dur) 20 meq PO 0230,1430 [facility] Stop: 09/05/18 02:31 Last Admin: 08/07/18 02:55 Dose: 20 meq Documented by: Prednisone (Prednisone) 10 mg PO BID [facility] Stop: 09/05/18 21:01 Last Admin: 08/09/18 09:52 Dose: 10 mg Documented by: Triamcinolone Acetonide (Kenalog 0.5% Cream) 1 appl TP BID [facility] Stop: 09/07/18 21:01 Last Admin: 08/09/18 11:28 Dose: 1 appl Documented by: Warfarin Sodium (Coumadin (Per Pharmacy)) 0 tab PO DAILY@0230 [facility] Stop: 09/08/18 02:31 Last Admin: 08/09/18 01:52 Dose: Not Given Documented by: Discontinued Medications Acetaminophen (Tylenol) 500 mg PO Q4H PRN PRN Reason: Pain Stop: 09/04/18 18:38 Last Admin: 08/07/18 00:41 Dose: 500 mg Documented by: Albuterol/Ipratropium (Duoneb 2.5-0.5mg/3ml Soln) 3 ml IH ONCE ONE Stop: 08/05/18 14:03 Last Admin: 08/05/18 14:15 Dose: 3 ml Documented by: Furosemide (Lasix) 80 mg IV ONCE ONE Stop: 08/07/18 08:39 Last Admin: 08/07/18 09:05 Dose: 80 mg Documented by: Furosemide (Lasix) 80 mg IV DAILY [facility] Stop: 09/07/18 16:16 Last Admin: 08/09/18 10:04 Dose: Not Given Documented by: Clindamycin Phosphate 600 mg/ (Dextrose/Water) 104 mls @ 300 mls/hr IV ONCE ONE; Protocol Stop: 08/05/18 15:53 Last Infusion: 08/05/18 16:17 Dose: Infused Documented by: Clindamycin Phosphate 300 mg/ (Dextrose/Water) 52 mls @ 300 mls/hr IV 0400,1000,1600,2200 [facility]; Protocol Stop: 09/04/18 22:01 Last Infusion: 08/07/18 03:11 Dose: Infused Documented by: Sodium Chloride (Sodium Chloride 0.9%) 1,000 mls @ 999 mls/hr IV .Q1H1M PRN PRN Reason: HYDRATION Stop: 09/05/18 09:53 Last Infusion: 08/07/18 10:36 Dose: 0 mls/hr Documented by: Sodium Chloride (Sodium Chloride 0.9%) 1,000 mls @ 999 mls/hr IV .Q1H1M ONE Stop: 08/06/18 16:48 Last Infusion: 08/06/18 17:00 Dose: Infused Documented by: Insulin Human NPH (Humulin N) 25 units SC BIDAC [facility] Stop: 09/05/18 07:01 Last Admin: 08/07/18 07:35 Dose: 25 units Documented by: Morphine Sulfate (Morphine Sulfate) 2 mg IV ONCE ONE Stop: 08/05/18 14:20 Last Admin: 08/05/18 14:21 Dose: 2 mg Documented by: Morphine Sulfate (Morphine Sulfate) 4 mg IV ONCE ONE Stop: 08/05/18 14:53 Last Admin: 08/05/18 14:57 Dose: 4 mg Documented by: Morphine Sulfate (Morphine Sulfate) 2 mg IV ONCE ONE Stop: 08/07/18 01:15 Last Admin: 08/07/18 01:27 Dose: 2 mg Documented by: Rosuvastatin Calcium (Crestor) 20 mg PO DAILY@0230 [facility] Stop: 09/05/18 02:31 Last Admin: 08/07/18 02:55 Dose: 20 mg Documented by: Warfarin Sodium (Coumadin) 5 mg PO MoTuWeThFrSa@0230 [facility] Stop: 09/05/18 02:31 Last Admin: 08/07/18 02:55 Dose: 5 mg Documented by: - Disposition Disposition: Short Term Hospital Inpatient Condition: Serious Discharge Date: 08/09/18 Discharge Time: 16:09
== END 2018-08-09 16:15 | disposition short-term general hospital (02) | DRG 603 ==
LOC: MS 13:33 → ER 13:33 → MS 16:17
PROVIDERS: ADMIT Family Medicine; ATTEND Family Medicine
DX: J45.41 Moderate persistent asthma with (acute) exacerbation; T37.0X5A Adverse effect of sulfonamides, initial encounter; J20.9 Acute bronchitis, unspecified; Z79.4 Long term (current) use of insulin; E55.9 Vitamin D deficiency, unspecified; I48.0 Paroxysmal atrial fibrillation; Z68.43 Body mass index [BMI] 50.0-59.9, adult; L20.84 Intrinsic (allergic) eczema; E78.5 Hyperlipidemia, unspecified; J44.9 Chronic obstructive pulmonary disease, unspecified; L27.0 Generalized skin eruption due to drugs and medicaments taken internally; L03.115 Cellulitis of right lower limb; R94.5 Abnormal results of liver function studies; N18.3 Chronic kidney disease, stage 3 (moderate); N17.9 Acute kidney failure, unspecified; I45.2 Bifascicular block; E66.01 Morbid (severe) obesity due to excess calories; E03.9 Hypothyroidism, unspecified; E11.22 Type 2 diabetes mellitus with diabetic chronic kidney disease; F17.200 Nicotine dependence, unspecified, uncomplicated; I25.10 Atherosclerotic heart disease of native coronary artery without angina pectoris; E80.1 Porphyria cutanea tarda; F32.9 Major depressive disorder, single episode, unspecified; Z79.01 Long term (current) use of anticoagulants; Z95.5 Presence of coronary angioplasty implant and graft; Y92.230 Patient room in hospital as the place of occurrence of the external cause; R34 Anuria and oliguria; E11.42 Type 2 diabetes mellitus with diabetic polyneuropathy; I12.9 Hypertensive chronic kidney disease with stage 1 through stage 4 chronic kidney disease, or unspecified chronic kidney disease; M19.90 Unspecified osteoarthritis, unspecified site; L03.116 Cellulitis of left lower limb
CPT/HCPCS: 36415; 71020; 71046; 80048; 80053; 81001; 82088; 83519; 83605; 83735; 83880; 84484; 85025; 85379; 85610; 85652; 86140; 87040; 87077; 87186; 93005; 94640; 94664; 96365; 96375; 99284; 99285

== ENCOUNTER 2019-10-20 16:17 | Observation (INO) ==
[2019-10-20] MEDS ORDERED: ALBUTEROL SULFATE/IPRATROPIUM 3 ML NEBU IH ONE (16:51)
[2019-10-20] MEDS ORDERED: METHYLPREDNISOLONE SOD SUCC/PF 40 MG/ML VIAL IV ONE (16:51)
--- NOTE | 2019-10-20 17:18 | ERNOTE ---
Medical Problem HPI - Narrative Date of Service: 10/20/19 - General Chief Complaint: General Assessment Time Seen by Provider: 10/20/19 16:44 Source: patient Exam Limitations: no limitations - Immun/Allergies/Home Medications Immunizations: IMMUNIZATION HX Immunizations Up to Date Yes History of Influenza Vaccine Yes Hx Pneumococcal Vaccination Yes Allergies/Adverse Reactions: Allergies clindamycin Allergy (Unknown, Verified 10/20/19 16:32) unknown bacitracin Allergy (Verified 10/20/19 16:32) sulfamethoxazole [From Bactrim] Allergy (Verified 10/20/19 16:32) kidneys trimethoprim [From Bactrim] Allergy (Verified 10/20/19 16:32) kidneys Home Medications: HOME MEDICATIONS Multivitamin [Multi-Vitamin Daily] 1 ea PO DAILY@1430 03/18/14 [Last Taken 07/20/14 14:00 1 tab] insulin NPH isoph U-100 human 100 unit/mL subcutaneous suspension See Rx Instructions SUB-Q BID #0.1 ml 04/09/18 [Last Taken Unknown] nitroglycerin 0.4 mg sublingual tablet 0.4 mg SL PRN PRN #25 tab 06/10/18 [Last Taken Unknown] Blood Sugar Diagnostic [Precision Xtra Test] 0 ea .ROUTE .MEDSUPPLY 08/05/18 [Last Taken Unknown] fenofibrate 160 mg tablet 160 mg PO DAILY@1430 #90 tab 02/23/19 [Last Taken Unknown] glipizide 5 mg tablet 5 mg PO DAILY@1430 #90 tab 02/23/19 [Last Taken Unknown] levothyroxine 200 mcg tablet 200 mcg PO DAILY@1430 #90 tab 06/30/19 [Last Taken Unknown] blood sugar diagnostic See Rx Instructions .ROUTE .MEDSUPPLY #300 ea 07/29/19 [Last Taken Unknown] atorvastatin 40 mg tablet 40 mg PO DAILY@0230 #90 tab 08/09/19 [Last Taken Unknown] amiodarone 100 mg tablet 100 mg PO DAILY tab 09/10/19 [Last Taken Unknown] cholecalciferol (vitamin D3) 25 mcg (1,000 unit) capsule 1,000 unit PO BID 09/10/19 [Last Taken Unknown] flaxseed oil 1,000 mg capsule 1,000 mg PO BID cap 09/10/19 [Last Taken Unknown] lisinopril 5 mg tablet 10 mg PO DAILY tab 09/10/19 [Last Taken Unknown] potassium chloride 20 mEq tablet,extended release 20 meq PO BID tab 09/10/19 [Last Taken Unknown] warfarin 3 mg tablet 3 mg PO DAILY #30 tab 09/17/19 [Last Taken Unknown] temazepam 30 mg capsule 30 mg PO HS PRN #30 cap 09/22/19 [Last Taken Unknown] tramadol 50 mg tablet 50 mg PO QID #120 tab 09/22/19 [Last Taken Unknown] bisacodyl 10 mg rectal suppository 10 mg TN DAILY #16 ea 10/06/19 [Last Taken Unknown] docusate sodium 100 mg capsule 200 mg PO DAILY #60 cap 10/06/19 [Last Taken Unknown] bisacodyl 10 mg rectal suppository 10 mg TN DAILY #0.1 ea 10/11/19 [Last Taken Unknown] polyethylene glycol 3350 17 gram/dose oral powder 17 g PO DAILY #0.1 g 10/11/19 [Last Taken Unknown] Levothyroxine Sodium [Synthroid] 25 mcg PO DAILY@1430 10/20/19 [Last Taken Unknown] - History of Present History Narrative: Patient presents to the ED from the office. He was seen by Dr Griggs and sent to the ED. He tells me that he has felt more "punky". Generalized weakness, worsening. Noted to have a fib RVR today and sent here. Some wheezing and SOB. Denies specific CP. States he was told in the office that his HR was 120. Has Hx of a fib. Constipation problems, unchanged. Timing: intermittent Severity: moderate Modifying Factors - (Improves): Present: other - nothign Modifying Factors - (Worsens): Present: other - nothing Review of Systems - Review of Systems Constitutional: Absent: fever EYE: Present: no symptoms reported ENT: Absent: sore throat Respiratory: Present: shortness of breath, cough Cardiology: Absent: palpitations Gastrointestinal/Abdominal: Present: See HPI Genitourinary: Absent: dysuria All Other Systems: All systems neg except as marked Medical History (Last Reviewed 10/20/19 @ 17:17 by Jose Bingham MD) Shortness of breath (Acute) Weakness (Acute) Unexplained weight loss (Acute) Recent weight loss (Acute) Abdominal pain (Acute) Bronchitis (Acute) Cellulitis (Acute) Failure of outpatient treatment (Acute) COPD (chronic obstructive pulmonary disease) with acute bronchitis (Acute) Acute renal insufficiency (Acute) Abnormal LFTs (Acute) Oliguria and anuria (Acute) Asthma (Acute) Allergic reaction caused by a drug (Acute) Type II diabetes mellitus (Chronic) Rash due to allergy (Acute) Stage III chronic kidney disease (Chronic) Weight gain (Chronic) Has gained about 8 lbs since his last visit. I reduced his Bumetanide to once daily last visit due to being too dry and having MARQUITA. He is feeling better and seems to be moving better today. Diabetic foot infection (Resolved) Porphyria (Chronic) CAD (coronary artery disease) (Chronic) Eczema (Chronic) Testicular/scrotal pain (Acute) Scrotum swelling (Chronic) Scrotal bleeding (Acute) Testicular/scrotal pain (Chronic) This is a chronically reoccurring event Scrotum swelling (Acute) Diabetes mellitus (Chronic) BS running in the 140-150s usually but has had lows down to as low as 28 at night while sleeping. Morbid obesity (Chronic) Chest pain (Acute) Tachycardia (Acute) Elevated blood pressure (Chronic) New onset atrial fibrillation (Acute) Sciatica (Acute) Back pain Dysphagia Edema Insomnia Low back pain Onset Date: ~10/04/15 Onychomycosis Onset Date: ~10/04/15 Arthritis Onset Date: Unknown Atrial fibrillation w/ RVR Bilateral knee pain Onset Date: ~10/04/15 COPD (chronic obstructive pulmonary disease) Onset Date: ~10/04/15 Coronary artery disease Onset Date: ~10/04/15 DVT (deep venous thrombosis) Onset Date: Unknown Diabetes mellitus Onset Date: ~10/04/15 Diabetic peripheral neuropathy Onset Date: ~10/04/15 Hearing loss Hyperlipidemia due to dietary fat intake Hypertension Onset Date: ~10/04/15 Hypothyroidism Paroxysmal atrial fibrillation Unstable angina with LAD stent 2000; with 3.0 promus drug eluting stent to the LAD 09/18/2010 Venous (peripheral) insufficiency Onset Date: ~10/04/15 Vitamin D deficiency Onset Date: ~02/04/13 Surgical History: Surgical History (Last Reviewed 10/20/19 @ 17:17 by Jose Bingham MD) History of barium enema Onset Date: 06/21/16 limited d/t body habitus History of blood clots Onset Date: 06/10/13 thrombectomy right brachial artery History of carpal tunnel release Onset Date: ~1998 Bilateral History of esophagogastroduodenoscopy (EGD) Onset Date: 03/23/14 03/23/14 Bagan-clotest Negative. Pharyngeal mass Hx of adenoidectomy Onset Date: Unknown Hx of angioplasty Onset Date: Unknown (3) OP 1 & 2 Hx of arthroscopic knee surgery Onset Date: 02/08/15 -right Hx of cardiac catheterization Onset Date: 09/18/12 06/25/01, 09/18/10, 09/18/12 Hx of cholecystectomy Onset Date: ~1996 KAH-lap Hx of colonoscopy Onset Date: Unknown Hx of toe surgery Onset Date: ~1986 Toe Nail removal & scraping Hx of tonsillectomy Onset Date: ~1975 Hx of vascular surgery Onset Date: ~2013 Vascular Occlusion, Right Status post insertion of dialysis catheter Onset Date: Unknown has had removed Stented coronary artery Onset Date: ~09/2010, 09/2010- 2 stents Family History: Family History (Last Reviewed 10/20/19 @ 17:17 by Jose Bingham MD) Brother , age 48-[place] Myocardial infarction Father , age 59-COPD COPD (chronic obstructive pulmonary disease) Heart disease Mother , age 86-old age Colon cancer dx age 50's Heart disease Myocardial infarction x3 @ age 62 CVA (cerebral vascular accident) Brother COPD (chronic obstructive pulmonary disease) Social History: (Last Reviewed 10/20/19 @ 17:17 by Jose Bingham MD) Social History: half-way: No Marital status: lives independently: Yes household members: none number of children: 3 current occupational status: retired Highest education level completed: some college, no degree Service: No Tobacco: Smoking Status: Current every day smoker tobacco type: cigarettes Smoking cigarettes per day: 10 second hand exposure: No Alcohol: alcohol intake: current Alcohol type: beer alcohol intake frequency: holiday/special occasion Substance Use: substance use type: does not use Dietary Habits: caffeine: No Exercise: Physical activity functional status: assisted ambulation Personal Safety: victim of physical abuse: No victim of emotional abuse: No Physical Exam - Physical Exam General Appearance: Present: alert, no apparent distress Head Exam: Present: normal inspection, no evidence of injury Eye Exam: Normal inspection: bilateral, PERRL: bilateral Ears, Nose, Throat: Present: normal ENT inspection Neck: Present: normal inspection Respiratory: Present: no respiratory distress, no accessory muscle use, wheezing Cardiovascular/Chest: Present: normal peripheral pulses, irregularly irregular Gastrointestinal/Abdominal: Present: normal bowel sounds, nontender, soft Back Exam: Absent: CVA tenderness (R), CVA tenderness (L) Extremity Exam: Present: pedal edema, other - patient states only minimally worse that prior Neurological Exam: Present: alert, no motor/sensory deficits, other - generalized weakenss, no acute unilateral focal motor or sensory deficits Skin Exam: Present: normal color, warm/dry Progress - Results and Orders Patient's Lab Results:: I have reviewed the patient's lab results. - Vital Signs Patient's Vital Signs:: I have reviewed the patient's vital signs. Vital Signs: Vital Signs 10/20/19 16:28 Temperature 36.0 C Pulse Rate 93 Respiratory Rate 15 Blood Pressure 129/85 O2 Sat by Pulse Oximetry 95 - EKG EKG #1 EKG: atrial fibrillation EKG read: Interp. by me EKG Comments: A fib rate 92. RBBB. Non-specific, no STEMI noted - X-Ray X-Ray #1 X-Ray: chest Interpretation: Interp. by me X-ray Comments: No real time radiology reads. Pulm vasc congestion by my interpret. - Progress/Reassessment Chief Complaint: General Assessment Progress Note-Subjective: 10/20/19 18:05 Patient has pulmonary vascular congestion of CXR and elevated BNP (highest it has been). Given his SOB and a fib RVR this likely represents fluid overload. He has been off diuretics for dehydration. IV Bumex given. He ambulated less than 10 feet and his HR was up in the 145 rage right away and he became visibly more SOB and needed to sit in the wheelchair, his HR went down rapidly with this but he has labile a fib especially with ambulation. No ACS noted. He feels very weak generally and it is not clear that he can go home bty himself espexially with knowing that his HR goes up over 140 withj even minimal ambulation. I discussed the case with Dr Loyd who will admit obs for diuresis/etc. Patient is agreeable. Departure Clinical Impression: COLE (dyspnea on exertion), Atrial fibrillation with RVR, Elevated brain natriuretic peptide (BNP) level, Generalized weakness - Departure Disposition: Still a patient Condition: Fair Referrals: Juventino Griggs DO [Primary Care Provider] -
[2019-10-20 17:26] LABS: Hematocrit 43.4 % (42.0-52.0); Hemoglobin 13.7 gm/dL (13.5-18.0); Mean Cell Volume 90.6 fl (78-100); Mean Corpuscular Hemoglobin 28.6 pg (27-31); Mean Corpuscular Hgb Conc 31.6 g/dl (32-36); Mean Platelet Volume 10.8 fl (8-11.3); Neutrophil % 81.9 % (42-75.0); Platelet Count 311 K/mm3 (150-450); Red Blood Count 4.79 M/mm3 (4.7-6.0); Red Cell Distribution Width 16.2 % (11.5-14.0); White Blood Count 9.7 K/mm3 (4.0-10.5)
[2019-10-20 17:29] LABS: Prothrombin Time (Patient) 27.4 Seconds (9.1-10.7)
[2019-10-20 17:30] LABS: INR 2.88 INR (0.92-1.08)
[2019-10-20 17:43] LABS: Albumin * 2.5 gm/dl (3.4-5.0); Anion Gap 14.1 mmol/L (6.8-13.8); BUN/Creatinine Ratio 14.2 (9.0-21.6); Bilirubin, Total 0.6 mg/dL (0.0-1.1); Ca. Corrected For Albumin 9.6 mg/dL (8.4-10.2); Calcium * 8.7 mg/dL (7.9-10.9); Carbon Dioxide 25.1 mmol/L (24-32.6); Potassium 4.2 mmol/L (3.4-4.6); Total Protein 6.8 gm/dL (6.2-8.2)
[2019-10-20 17:44] LABS: Troponin I 0.021 ng/mL (0.00-0.10)
[2019-10-20] MEDS ORDERED: BUMETANIDE 0.25 MG/ML VIAL IV ONE (18:30)
[2019-10-20] MEDS ORDERED: NITROGLYCERIN 0.4 MG/TAB BTL SL PRN (19:02)
--- NOTE | 2019-10-20 19:22 | HP ---
Chief Complaint - Chief Complaint Date of Service: 10/20/19 Time of Service: 19:14 Chief Complaint: Weakness and shortness of breath, upper abdominal pain and lower chest pain History of Present Illness: Bar Rodriguez is a 69-year-old male who presented to my office today feeling weaker and short of breath. He had walked in from the parking lot and had to be placed in a wheelchair and brought up to the office because of dyspnea. On exam per auscultation he is in atrial fibrillation with RVR of at least 120 bpm. I sent him to the emergency room to be evaluated and treated and he was subsequently admitted to observation status. He also has a lot of problems with his colon having had a lot of constipation problems. He is taking quite a lot of fiber, stimulants, lubricants to help with the constipation. It is better. He has been using bicycle little suppositories as well but cannot hold them in for more than about 10 minutes so they are probably not doing a lot of good. He has chronic atrial fibrillation and is on Coumadin for that. Medical History (Last Reviewed 10/20/19 @ 18:49 by Lennox Bhat RN) Shortness of breath (Acute) Weakness (Acute) Unexplained weight loss (Acute) Recent weight loss (Acute) Abdominal pain (Acute) Bronchitis (Acute) Cellulitis (Acute) Failure of outpatient treatment (Acute) COPD (chronic obstructive pulmonary disease) with acute bronchitis (Acute) Acute renal insufficiency (Acute) Abnormal LFTs (Acute) Oliguria and anuria (Acute) Asthma (Acute) Allergic reaction caused by a drug (Acute) Type II diabetes mellitus (Chronic) Rash due to allergy (Acute) Stage III chronic kidney disease (Chronic) Weight gain (Chronic) Has gained about 8 lbs since his last visit. I reduced his Bumetanide to once daily last visit due to being too dry and having MARQUITA. He is feeling better and seems to be moving better today. Diabetic foot infection (Resolved) Porphyria (Chronic) CAD (coronary artery disease) (Chronic) Eczema (Chronic) Testicular/scrotal pain (Acute) Scrotum swelling (Chronic) Scrotal bleeding (Acute) Testicular/scrotal pain (Chronic) This is a chronically reoccurring event Scrotum swelling (Acute) Diabetes mellitus (Chronic) BS running in the 140-150s usually but has had lows down to as low as 28 at night while sleeping. Morbid obesity (Chronic) Chest pain (Acute) Tachycardia (Acute) Elevated blood pressure (Chronic) New onset atrial fibrillation (Acute) Sciatica (Acute) Back pain Dysphagia Edema Insomnia Low back pain Onset Date: ~10/04/15 Onychomycosis Onset Date: ~10/04/15 Arthritis Onset Date: Unknown Atrial fibrillation w/ RVR Bilateral knee pain Onset Date: ~10/04/15 COPD (chronic obstructive pulmonary disease) Onset Date: ~10/04/15 Coronary artery disease Onset Date: ~10/04/15 DVT (deep venous thrombosis) Onset Date: Unknown Diabetes mellitus Onset Date: ~10/04/15 Diabetic peripheral neuropathy Onset Date: ~10/04/15 Hearing loss Hyperlipidemia due to dietary fat intake Hypertension Onset Date: ~10/04/15 Hypothyroidism Paroxysmal atrial fibrillation Unstable angina with LAD stent 2000; with 3.0 promus drug eluting stent to the LAD 09/18/2010 Venous (peripheral) insufficiency Onset Date: ~10/04/15 Vitamin D deficiency Onset Date: ~02/04/13 Surgical History: Surgical History (Last Reviewed 10/20/19 @ 18:49 by Lennox Bhat RN) History of barium enema Onset Date: 06/21/16 limited d/t body habitus History of blood clots Onset Date: 06/10/13 thrombectomy right brachial artery History of carpal tunnel release Onset Date: ~1998 Bilateral History of esophagogastroduodenoscopy (EGD) Onset Date: 03/23/14 03/23/14 Bagan-clotest Negative. Pharyngeal mass Hx of adenoidectomy Onset Date: Unknown Hx of angioplasty Onset Date: Unknown (3) OP 1 & 2 Hx of arthroscopic knee surgery Onset Date: 02/08/15 -right Hx of cardiac catheterization Onset Date: 09/18/12 06/25/01, 09/18/10, 09/18/12 Hx of cholecystectomy Onset Date: ~1996 KAH-lap Hx of colonoscopy Onset Date: Unknown Hx of toe surgery Onset Date: ~1986 Toe Nail removal & scraping Hx of tonsillectomy Onset Date: ~1975 Hx of vascular surgery Onset Date: ~2013 Vascular Occlusion, Right Status post insertion of dialysis catheter Onset Date: Unknown has had removed Stented coronary artery Onset Date: ~09/2010, 09/2010- 2 stents Family History: Family History (Last Reviewed 10/20/19 @ 18:49 by Lennox Bhat RN) Brother , age 48-ME Myocardial infarction Father , age 59-COPD Heart disease COPD (chronic obstructive pulmonary disease) Mother , age 86-old age CVA (cerebral vascular accident) Myocardial infarction x3 @ age 62 Heart disease Colon cancer dx age 50's Brother COPD (chronic obstructive pulmonary disease) Social History: (Last Reviewed 10/20/19 @ 18:49 by Lennox Bhat RN) Social History: shelter: No Marital status: lives independently: Yes household members: none number of children: 3 current occupational status: retired Highest education level completed: some college, no degree Service: No Tobacco: Smoking Status: Current every day smoker tobacco type: cigarettes Smoking cigarettes per day: 10 second hand exposure: No Alcohol: alcohol intake: current Alcohol type: beer alcohol intake frequency: holiday/special occasion Substance Use: substance use type: does not use Dietary Habits: caffeine: No Exercise: Physical activity functional status: assisted ambulation Personal Safety: victim of physical abuse: No victim of emotional abuse: No Review Of Systems (GEN) - Review of Systems Generalized/Overall Review: Present: Weakness, Malaise, Fatigue EENTM: Present: No Symptoms Reported Respiratory: Present: Cough, Shortness of Breath Cardiac: Present: Palpitations Abdominal: Present: Abdominal Pain, Constipation Genitourinary: Present: No Symptoms Reported Musculoskeletal: Present: No Symptoms Reported Neurological: Present: No Symptoms Reported Skin: Present: No Symptoms Reported Endocrine: Present: No Symptoms Reported Immunizations: IMMUNIZATION HX Immunizations Up to Date Yes History of Influenza Vaccine Yes Hx Pneumococcal Vaccination Yes Allergies/Adverse Reactions: Allergies Allergy/AdvReac Type Severity Reaction Status Date / Time clindamycin Allergy Unknown unknown Verified 10/20/19 18:49 bacitracin Allergy Verified 10/20/19 18:49 sulfamethoxazole Allergy kidneys Verified 10/20/19 18:49 [From Bactrim] trimethoprim [From Bactrim] Allergy kidneys Verified 10/20/19 18:49 Home Medications: HOME MEDICATIONS Multivitamin [Multi-Vitamin Daily] 1 ea PO DAILY@1430 03/18/14 [Last Taken 07/20/14 14:00 1 tab] insulin NPH isoph U-100 human 100 unit/mL subcutaneous suspension See Rx Instructions SUB-Q BID #0.1 ml 04/09/18 [Last Taken Unknown] nitroglycerin 0.4 mg sublingual tablet 0.4 mg SL PRN PRN #25 tab 06/10/18 [Last Taken Unknown] Blood Sugar Diagnostic [Precision Xtra Test] 0 ea .ROUTE .MEDSUPPLY 08/05/18 [Last Taken Unknown] fenofibrate 160 mg tablet 160 mg PO DAILY@1430 #90 tab 02/23/19 [Last Taken Unknown] glipizide 5 mg tablet 5 mg PO DAILY@1430 #90 tab 02/23/19 [Last Taken Unknown] levothyroxine 200 mcg tablet 200 mcg PO DAILY@1430 #90 tab 06/30/19 [Last Taken Unknown] blood sugar diagnostic See Rx Instructions .ROUTE .MEDSUPPLY #300 ea 07/29/19 [Last Taken Unknown] atorvastatin 40 mg tablet 40 mg PO DAILY@0230 #90 tab 08/09/19 [Last Taken Unknown] amiodarone 100 mg tablet 100 mg PO DAILY tab 09/10/19 [Last Taken Unknown] cholecalciferol (vitamin D3) 25 mcg (1,000 unit) capsule 1,000 unit PO BID 09/10/19 [Last Taken Unknown] flaxseed oil 1,000 mg capsule 1,000 mg PO BID cap 09/10/19 [Last Taken Unknown] lisinopril 5 mg tablet 10 mg PO DAILY tab 09/10/19 [Last Taken Unknown] potassium chloride 20 mEq tablet,extended release 20 meq PO BID tab 09/10/19 [Last Taken Unknown] warfarin 3 mg tablet 3 mg PO DAILY #30 tab 09/17/19 [Last Taken Unknown] temazepam 30 mg capsule 30 mg PO HS PRN #30 cap 09/22/19 [Last Taken Unknown] tramadol 50 mg tablet 50 mg PO QID #120 tab 09/22/19 [Last Taken Unknown] bisacodyl 10 mg rectal suppository 10 mg [place] DAILY #16 ea 10/06/19 [Last Taken Unknown] docusate sodium 100 mg capsule 200 mg PO DAILY #60 cap 10/06/19 [Last Taken Unknown] bisacodyl 10 mg rectal suppository 10 mg [place] DAILY #0.1 ea 10/11/19 [Last Taken Unknown] polyethylene glycol 3350 17 gram/dose oral powder 17 g PO DAILY #0.1 g 10/11/19 [Last Taken Unknown] Levothyroxine Sodium [Synthroid] 25 mcg PO DAILY@1430 10/20/19 [Last Taken Unknown] Exam - Exam Vital Signs: Vital Signs - Last Taken Temp 36.4 C 10/20/19 18:50 Pulse 88 10/20/19 18:50 Resp 20 10/20/19 18:50 BP 131/77 10/20/19 18:50 Pulse Ox 96 10/20/19 18:50 Constitutional: Present: Alert, Oriented x3, Cooperative, Well developed, Well nourished, Mild distress, Morbidly obese - But he has lost a lot of weight. ENT Exam: Present: normal ENT inspection, hearing grossly normal, pharynx normal, TMs normal, hard of hearing Eye Exam: bilateral eye: normal inspection, PERRL, EOMI Neck: Present: non-tender, full range of motion, supple, normal inspection Back Exam: Present: normal inspection, no CVA tenderness, no vertebral tenderness Breasts: Present: Exam deferred Respiratory: Present: chest non-tender, decreased breath sounds, rhonchi, No wheezing Cardiovascular/Chest: Present: normal peripheral pulses, bradycardia, irregularly irregular Peripheral Pulses: carotid (R): 2+, carotid (L): 2+, radial (R): 2+, radial (L): 2+ Abdomen: Present: Normal bowel sounds, soft, nontender, nondistended, no rebound tenderness, no hepatospenomegaly, no masses /Rectal: Present: Exam deferred Extremity: Present: normal range of motion, non-tender, normal inspection, no pedal edema, no calf tenderness Skin Exam: Present: warm/dry, pallor Lymphatic: Present: no adenopathy Neurologic: Present: academic support assistant II-XII nml as tested, normal cerebellar test, no motor/sensory deficits, alert, normal mood/affect, oriented x 3 Appearance: Present: appropriate appearance, appropriate insight, no memory i mpairment, disheveled Eye contact: Present: cooperative, good eye contact, normal speech Thoughts: Present: normal thought pattern, no apparent hallucination Diagnostic Studies: Abnormal Lab Results 10/20/19 10/20/19 10/20/19 Range/Units 16:51 17:07 17:07 MCHC 31.6 L (32-36) g/dl RDW 16.2 H (11.5-14.0) % Immature Gran % (Auto) 0.50 H (0.001-0.429) % Immature Gran # (Auto) 0.05 H (0.000-0.0310) K/mm3 Neutrophils % 81.9 H (42-75.0) % Lymphocytes % 9.6 L (20-51) % Neutrophils # 8.0 H (1.3-6.0) K/mm3 Lymphocytes # 0.93 L (1.5-3.5) k/mm3 PT 27.4 H (9.1-10.7) Seconds INR (Anticoag Therapy) 2.88 H (0.92-1.08) INR Anion Gap 14.1 H (6.8-13.8) mmol/L Random Glucose 160 H (70-110) mg/dL ALT 18 L (19-67) U/L B-Natriuretic Peptide 2040 H (5-350) pg/mL Albumin 2.5 L (3.4-5.0) gm/dl Lipase 33 L (73-393) U/L Laboratory Results WBC 9.7 K/mm3 (4.0-10.5) 10/20/19 16:51 RBC 4.79 M/mm3 (4.7-6.0) 10/20/19 16:51 Hgb 13.7 gm/dL (13.5-18.0) 10/20/19 16:51 Hct 43.4 % (42.0-52.0) 10/20/19 16:51 MCV 90.6 fl (78-100) 10/20/19 16:51 MCH 28.6 pg (27-31) 10/20/19 16:51 MCHC 31.6 g/dl (32-36) L 10/20/19 16:51 RDW 16.2 % (11.5-14.0) H 10/20/19 16:51 Plt Count 311 K/mm3 (150-450) 10/20/19 16:51 MPV 10.8 fl (8-11.3) 10/20/19 16:51 Immature Gran % (Auto) 0.50 % (0.001-0.429) H 10/20/19 16:51 Immature Gran # (Auto) 0.05 K/mm3 (0.000-0.0310) H 10/20/19 16:51 Neutrophils % 81.9 % (42-75.0) H 10/20/19 16:51 Lymphocytes % 9.6 % (20-51) L 10/20/19 16:51 Monocytes % 7.2 % (0.0-9) 10/20/19 16:51 Eosinophils % 0.4 % (0.0-3.0) 10/20/19 16:51 Basophils % 0.4 % (0.0-1.0) 10/20/19 16:51 Nucleated RBC % 0.0 k/mm3 (0-1) 10/20/19 16:51 Neutrophils # 8.0 K/mm3 (1.3-6.0) H 10/20/19 16:51 Lymphocytes # 0.93 k/mm3 (1.5-3.5) L 10/20/19 16:51 Monocytes # 0.7 k/mm3 (0.0-1.0) 10/20/19 16:51 Eosinophils # 0.0 k/mm3 (0.0-0.7) 10/20/19 16:51 Absolute Basophils 0.0 k/mm3 (0.0-0.1) 10/20/19 16:51 PT 27.4 Seconds (9.1-10.7) H 10/20/19 17:07 INR (Anticoag Therapy) 2.88 INR (0.92-1.08) H 10/20/19 17:07 Sodium 139 mmol/L (132-142) 10/20/19 17:07 Plasma Sodium 140 mmol/L (130-142) 10/20/19 17:07 Potassium 4.2 mmol/L (3.4-4.6) 10/20/19 17:07 Chloride 104 mmol/L (97-106) 10/20/19 17:07 Carbon Dioxide 25.1 mmol/L (24-32.6) 10/20/19 17:07 Anion Gap 14.1 mmol/L (6.8-13.8) H 10/20/19 17:07 BUN 18 mg/dL (6-23) 10/20/19 17:07 Creatinine 1.27 mg/dL (0.4-1.4) 10/20/19 17:07 Est GFR (Non-Af Amer) 60 mL/min (60-130) D 10/20/19 17:07 BUN/Creatinine Ratio 14.2 (9.0-21.6) 10/20/19 17:07 Random Glucose 160 mg/dL (70-110) H 10/20/19 17:07 Lactic Acid, Venous 0.9 mmol/L (0.4-2.0) 10/20/19 17:07 Calcium 8.7 mg/dL (7.9-10.9) 10/20/19 17:07 Calcium Adj for Albumin 9.6 mg/dL (8.4-10.2) 10/20/19 17:07 Total Bilirubin 0.6 mg/dL (0.0-1.1) 10/20/19 17:07 AST 19 U/L (0-48) 10/20/19 17:07 ALT 18 U/L (19-67) L 10/20/19 17:07 Alkaline Phosphatase 64 U/L (50-170) 10/20/19 17:07 Troponin I 0.021 ng/mL (0.00-0.10) 10/20/19 17:07 B-Natriuretic Peptide 2040 pg/mL (5-350) H 10/20/19 17:07 Total Protein 6.8 gm/dL (6.2-8.2) 10/20/19 17:07 Albumin 2.5 gm/dl (3.4-5.0) L 10/20/19 17:07 Lipase 33 U/L (73-393) L 10/20/19 17:07 Influenza Type A Ag Negative (NEGATIVE) 10/20/19 17:10 Influenza Type B Ag Negative (NEGATIVE) 10/20/19 17:10 Assessment/Plan - Narrative Narrative: 1. Continuous cardiac monitoring 2. Implant meds to slow his heart down. 3. Continue usual home meds 4. Repeat lab tomorrow morning and repeat EKG tomorrow morning. 5. Anticipate discharge to home tomorrow. - Assessment/Plan (1) Constipation Problem: Acute Qualifiers: Constipation type: slow transit constipation (2) COLE (dyspnea on exertion) Problem: Acute (3) Atrial fibrillation with RVR Problem: Acute (4) Elevated brain natriuretic peptide (BNP) level Problem: Acute (5) Weakness Problem: Chronic (6) Unexplained weight loss Problem: Chronic
[2019-10-20] MEDS ORDERED: TEMAZEPAM 15 MG CAPSULE PO PRN (20:01)
[2019-10-20] MEDS ORDERED: WARFARIN SODIUM 1 MG TABLET ONE (21:12)
[2019-10-20] MEDS ORDERED: WARFARIN SODIUM 2.5 MG TABLET ONE (21:12)
[2019-10-20] MEDS: CHOLECALCIFEROL 1,000 UNIT CAPSULE PO SCH (21:14)
[2019-10-20] MEDS: FLAX SEED OIL 1000 MG PO SCH (21:14)
[2019-10-20] MEDS: traMADol HCL 50 MG TABLET PO SCH (21:14)
[2019-10-20] MEDS: POTASSIUM CHLORIDE 20 MEQ TABLET.SA PO SCH (21:14)
[2019-10-20] MEDS ORDERED: WARFARIN SODIUM 3 MG TABLET PO SCH (21:15)
[2019-10-20] MEDS: INSULIN NPH HUMAN ISOPHANE 100 UNITS/ML VIAL SC SCH (21:16)
[2019-10-20] MEDS: BLOOD SUGAR DIAGNOSTIC 1 EACH STRIP MC SCH (21:19)
[2019-10-20 22:12] LABS: Urine Bilirubin 1 mg/dl (NEGATIVE); Urine Blood 25 /ul (NEGATIVE); Urine Ketone Negative (NEGATIVE); Urine Nitrite Negative (NEGATIVE); Urine Protein 100 mg/dL (NEGATIVE); Urine Specific Gravity >=1.030 SP.GR. (1.005-1.030); Urine Urobilinogen Normal (NORMAL)
[2019-10-20 22:22] LABS: Urine Appearance Slightly Cloudy (CLEAR); Urine Bacteria TRACE; Urine Color Yellow; Urine RBC TRACE /hpf (0-5); Urine WBC TRACE /hpf (0-5)
[2019-10-21] MEDS ORDERED: ROSUVASTATIN CALCIUM 20 MG TABLET PO SCH (02:30)
[2019-10-21] MEDS ORDERED: ROSUVASTATIN CALCIUM 10 MG TABLET ONE (02:33)
[2019-10-21] MEDS ORDERED: FUROSEMIDE 10 MG/ML VIAL IV ONE (06:00)
[2019-10-21 06:30] LABS: Hematocrit 40.1 % (42.0-52.0); Hemoglobin 12.6 gm/dL (13.5-18.0); Mean Cell Volume 91.3 fl (78-100); Mean Corpuscular Hemoglobin 28.7 pg (27-31); Mean Corpuscular Hgb Conc 31.4 g/dl (32-36); Mean Platelet Volume 10.7 fl (8-11.3); Neutrophil # 6.5 K/mm3 (1.3-6.0); Neutrophil % 85.8 % (42-75.0); Platelet Count 278 K/mm3 (150-450); Red Blood Count 4.39 M/mm3 (4.7-6.0); Red Cell Distribution Width 16.2 % (11.5-14.0); White Blood Count 7.6 K/mm3 (4.0-10.5)
[2019-10-21 06:42] LABS: Albumin * 2.1 gm/dl (3.4-5.0); Anion Gap 12.6 mmol/L (6.8-13.8); BUN/Creatinine Ratio 16.4 (9.0-21.6); Bilirubin, Total 0.2 mg/dL (0.0-1.1); Ca. Corrected For Albumin 9.8 mg/dL (8.4-10.2); Calcium * 8.6 mg/dL (7.9-10.9); Carbon Dioxide 27.8 mmol/L (24-32.6); Potassium 4.4 mmol/L (3.4-4.6); Total Protein 6.1 gm/dL (6.2-8.2)
[2019-10-21] MEDS: BLOOD SUGAR DIAGNOSTIC 1 EACH STRIP MC SCH ×2 (06:59→12:10)
[2019-10-21 08:33] LABS: Prothrombin Time (Patient) 28.7 Seconds (9.1-10.7)
[2019-10-21 08:35] LABS: INR 3.03 INR (0.92-1.08)
[2019-10-21] MEDS ORDERED: LISINOPRIL 10 MG TABLET PO SCH (09:00)
[2019-10-21] MEDS ORDERED: AMIODARONE HCL 200 MG TABLET PO SCH (09:00)
[2019-10-21] MEDS ORDERED: POLYETHYLENE GLYCOL 3350 119 GM BTL PO SCH (09:00)
[2019-10-21] MEDS ORDERED: DOCUSATE SODIUM 100 MG CAPSULE PO SCH (09:00)
[2019-10-21] MEDS ORDERED: WARFARIN SODIUM 3 MG TABLET PO SCH ×2 (09:00→21:15)
[2019-10-21] MEDS ORDERED: BISACODYL 10 MG SUPP.RECT RC SCH (09:00)
[2019-10-21] MEDS: POTASSIUM CHLORIDE 20 MEQ TABLET.SA PO SCH (09:18)
[2019-10-21] MEDS: FLAX SEED OIL 1000 MG PO SCH (09:18)
[2019-10-21] MEDS: traMADol HCL 50 MG TABLET PO SCH ×2 (09:19→14:00)
[2019-10-21] MEDS: INSULIN NPH HUMAN ISOPHANE 100 UNITS/ML VIAL SC SCH (09:20)
[2019-10-21] MEDS: CHOLECALCIFEROL 1,000 UNIT CAPSULE PO SCH (09:20)
--- NOTE | 2019-10-21 13:01 | DS ---
(1) Constipation Problem: Chronic Qualifiers: Constipation type: slow transit constipation (2) COLE (dyspnea on exertion) Problem: Acute (3) Atrial fibrillation with RVR Problem: Acute (4) Elevated brain natriuretic peptide (BNP) level Problem: Acute (5) Weakness Problem: Chronic (6) Unexplained weight loss Problem: Chronic Date of Discharge:: 10/21/19 Hospital Course: Bar Rodriguez was admitted yesterday evening through the emergency room. I had seen him in the office earlier and sent him to the emergency room because he was in atrial fibrillation with RVR and was symptomatic with dyspnea on minor exertion. With minor exertion his heart rate would go up 40 or 50 bpm and just walking about 10 steps. His BNP is elevated at over 2000. The renal status appears to be okay. He also has a long standing history of chronic constipation and is taking a lot of stool softeners, bulking agents, and cathartics. He has a huge abdominal pannus. His health would be greatly improved if he can survive having that removed. He has been diuresed in the emergency room again last evening and again this morning but has given up a great deal of fluids. However when he walks his heart rate only goes up to about 120-125 bpm. He is tired but otherwise feels like he is breathing better. He is okay to be discharged home. Procedures Performed: none Results and Findings: Lab Pending Results 10/20/19 16:51: WBC 9.7, RBC 4.79, Hgb 13.7, Hct 43.4, MCV 90.6, MCH 28.6, MCHC 31.6 L, RDW 16.2 H, Plt Count 311, MPV 10.8, Immature Gran % (Auto) 0.50 H, Immature Gran # (Auto) 0.05 H, Neutrophils % 81.9 H, Lymphocytes % 9.6 L, Monocytes % 7.2, Eosinophils % 0.4, Basophils % 0.4, Nucleated RBC % 0.0, Neutrophils # 8.0 H, Lymphocytes # 0.93 L, Monocytes # 0.7, Eosinophils # 0.0, Absolute Basophils 0.0 10/20/19 17:07: Sodium 139, Plasma Sodium 140, Potassium 4.2, Chloride 104, Carbon Dioxide 25.1, Anion Gap 14.1 H, BUN 18, Creatinine 1.27, Est GFR (Non-Af Amer) 60 D, BUN/Creatinine Ratio 14.2, Random Glucose 160 H, Calcium 8.7, Calcium Adj for Albumin 9.6, Total Bilirubin 0.6, AST 19, ALT 18 L, Alkaline Phosphatase 64, Troponin I 0.021, B-Natriuretic Peptide 2040 H, Total Protein 6.8, Albumin 2.5 L, Lipase 33 L 10/20/19 17:07: Lactic Acid, Venous 0.9 10/20/19 17:07: PT 27.4 H, INR (Anticoag Therapy) 2.88 H 10/20/19 17:10: Influenza Type A Ag Negative, Influenza Type B Ag Negative 10/20/19 21:30: Urine Color Yellow, Urine Appearance Slightly cloudy, Urine pH 5.0, Ur Specific [place] >=1.030, Urine Protein 100 H, Urine Glucose (UA) Negative, Urine Ketones Negative, Urine Blood 25 H, Urine Nitrate Negative, Urine Bilirubin 1 H, Urine Ictotest Negative, Prot Sulfosalicylic Acd 3+ H, Urine Urobilinogen Normal, Ur Leukocyte Esterase Negative, Urine RBC Trace, Urine WBC Trace, Ur Epithelial Cells Trace, Urine Bacteria Trace, Urine Culture Comments No culture indicated 10/21/19 06:12: WBC 7.6 D, RBC 4.39 L, Hgb 12.6 L, Hct 40.1 L, MCV 91.3, MCH 28.7, MCHC 31.4 L, RDW 16.2 H, Plt Count 278, MPV 10.7, Immature Gran % (Auto) 0.80 H, Immature Gran # (Auto) 0.06 H, Neutrophils % 85.8 H, Lymphocytes % 8.6 L, Monocytes % 4.7, Eosinophils % 0.0, Basophils % 0.1, Nucleated RBC % 0.0, Neutrophils # 6.5 H, Lymphocytes # 0.65 L, Monocytes # 0.4, Eosinophils # 0.0, Absolute Basophils 0.0 10/21/19 06:12: Sodium 141, Plasma Sodium 143 H, Potassium 4.4, Chloride 105, Carbon Dioxide 27.8, Anion Gap 12.6, BUN 22, Creatinine 1.34, Est GFR (Non-Af Amer) 57 L, BUN/Creatinine Ratio 16.4, Random Glucose 255 H D, Calcium 8.6, Calcium Adj for Albumin 9.8, Total Bilirubin 0.2, AST 12, ALT 14 L, Alkaline Phosphatase 50, Total Protein 6.1 L, Albumin 2.1 L 10/21/19 06:12: PT 28.7 H, INR (Anticoag Therapy) 3.03 H Discharge Location: Home Disposition: Home self-care Condition: Fair Face to Face Encounter completed per [facility] Guidelines: No Discharge Activity: Activity as tolerated Discharge Diet: General/regular food Referrals: Juventino Griggs DO [Primary Care Provider] - Additional Patient Instructions (free text): See Dr. Griggs in the office in 1 week schedule for late afternoon. Complete Home Medications List: Complete Home Medication List: Multivitamin [Multi-Vitamin Daily] 1 ea PO DAILY@1430 03/18/14 insulin NPH isoph U-100 human 100 unit/mL subcutaneous suspension See Rx Instructions SUB-Q BID #0.1 ml 04/09/18 nitroglycerin 0.4 mg sublingual tablet 0.4 mg SL PRN PRN #25 tab 06/10/18 Blood Sugar Diagnostic [Contour Test Strip] 0 ea .ROUTE .MEDSUPPLY 08/05/18 fenofibrate 160 mg tablet 160 mg PO DAILY@1430 #90 tab 02/23/19 glipizide 5 mg tablet 5 mg PO DAILY@1430 #90 tab 02/23/19 levothyroxine 200 mcg tablet 200 mcg PO DAILY@1430 #90 tab 06/30/19 blood sugar diagnostic See Rx Instructions .ROUTE .MEDSUPPLY #300 ea 07/29/19 amiodarone 100 mg tablet 100 mg PO DAILY tab 09/10/19 cholecalciferol (vitamin D3) 25 mcg (1,000 unit) capsule 1,000 unit PO BID 09/10/19 flaxseed oil 1,000 mg capsule 1,000 mg PO BID cap 09/10/19 lisinopril 5 mg tablet 10 mg PO DAILY tab 09/10/19 potassium chloride 20 mEq tablet,extended release 20 meq PO BID tab 09/10/19 warfarin 3 mg tablet 3 mg PO DAILY #30 tab 09/17/19 temazepam 30 mg capsule 30 mg PO HS PRN #30 cap 09/22/19 tramadol 50 mg tablet 50 mg PO QID #120 tab 09/22/19 bisacodyl 10 mg rectal suppository 10 mg [place] DAILY #16 ea 10/06/19 docusate sodium 100 mg capsule 200 mg PO DAILY #60 cap 10/06/19 bisacodyl 10 mg rectal suppository 10 mg [place] DAILY #0.1 ea 10/11/19 polyethylene glycol 3350 17 gram/dose oral powder 17 g PO DAILY #0.1 g 10/11/19 Levothyroxine Sodium [Synthroid] 25 mcg PO DAILY@1430 10/20/19 Metolazone [Zaroxolyn] 5 mg PO DAILY@1100 #30 tab 10/21/19 Rosuvastatin Calcium [Crestor] 10 mg PO DAILY@0230 #30 tab 10/21/19
[2019-10-21] MEDS ORDERED: LEVOTHYROXINE SODIUM 100 MCG TABLET PO SCH (14:30)
[2019-10-21] MEDS ORDERED: LEVOTHYROXINE SODIUM 25 MCG TABLET PO SCH (14:30)
[2019-10-21] MEDS ORDERED: FENOFIBRATE,MICRONIZED 134 MG CAPSULE PO SCH (14:30)
[2019-10-21] MEDS ORDERED: glipiZIDE 5 MG TABLET PO SCH (14:30)
[2019-10-21] MEDS ORDERED: MULTIVITAMINS 1 CAP CAPSULE PO SCH (14:30)
[2019-10-21 15:30] VITALS: BP 134/84
== END 2019-10-21 15:45 | disposition home or self-care (01) ==
LOC: ER 16:17 → MS 16:17
PROVIDERS: ADMIT Family Medicine; ATTEND Family Medicine
DX: R53.1 Weakness; I48.91 Unspecified atrial fibrillation; K59.09 Other constipation; R07.9 Chest pain, unspecified; R79.89 Other specified abnormal findings of blood chemistry; R63.4 Abnormal weight loss
CPT/HCPCS: 36415; 71020; 71046; 80053; 81001; 83519; 83605; 83690; 83880; 84484; 85025; 85610; 87400; 87449; 93005; 94640; 94664; 96372; 96374; 96375; 99285; G0378